=== PATIENT | female | born 1950 | race African-American/Black ===

== ENCOUNTER 2018-03-20 09:15 | Emergency (ER) | payer OTHER ==
[~2018-03-20] VITALS: Ht 175.3 cm; Wt 92.5 kg
[2018-03-20 09:52] VITALS: BP 135/75
[2018-03-20] MEDS ORDERED: KETOROLAC TROMETH 30 MG/ML 1ML VIAL IM ONE (10:30)
== END 2018-03-20 12:05 | disposition home or self-care (01) ==
LOC: ER 09:15
DX: S83.242A Other tear of medial meniscus, current injury, left knee, initial encounter (principal); M19.90 Unspecified osteoarthritis, unspecified site; E11.9 Type 2 diabetes mellitus without complications; I10 Essential (primary) hypertension; E07.9 Disorder of thyroid, unspecified; Z87.891 Personal history of nicotine dependence; Z88.0 Allergy status to penicillin; X58.XXXA Exposure to other specified factors, initial encounter; Y93.89 Activity, other specified; Y99.8 Other external cause status; Y92.89 Other specified places as the place of occurrence of the external cause
CPT/HCPCS: 73552; 73700; 96372; 99284; J1885

== ENCOUNTER 2019-05-13 17:29 | Emergency (ER) | payer OTHER ==
[~2019-05-13] VITALS: Ht 175.3 cm; Wt 91.6 kg
[2019-05-13] MEDS ORDERED: KETOROLAC TROMETH 60MG/2ML VIAL IM ONE (21:15)
[2019-05-13 22:54] VITALS: BP 133/77
== END 2019-05-13 23:53 | disposition home or self-care (01) ==
LOC: ER 17:29
DX: M25.512 Pain in left shoulder (principal); M19.90 Unspecified osteoarthritis, unspecified site; E11.9 Type 2 diabetes mellitus without complications; I10 Essential (primary) hypertension; E07.9 Disorder of thyroid, unspecified
CPT/HCPCS: 73030; 93005; 96372; 99283; J1885

== ENCOUNTER 2025-01-12 09:46 | Inpatient (IN) | payer OTHER ==
[~2025-01-12] VITALS: Ht 175.3 cm; Wt 81.0 kg
--- NOTE | 2025-01-12 10:53 | ED.PDOC ---
History of Present Illness HPI Comments 74F presents to the Er w/ prior MHx of Arthritis, PUD, HTN, DM, High Lipids, Thyroid, Lung Cancer: SHx of Cancer Sx, BTL, Left Eye, Left Elbow and the c/c of ABD pain. Pt reports on having diffuse ABD pain associated w/ decrease eating, weight loss, constipation, N/V, all for 3 weeks. Pt notes on the ABD pain being a 10/10. Denies chills, fever, /D, SOB, CP. Denies any other associated symptom's, modifiers, or recent injuries or sick contact at this time. Chief Complaint: Abdominal Pain Time Seen by MD: 10:45 Primary Care Provider: NNEKA Holder Notes: Nurses Notes, Medications, Allergies Allergies: Uncoded Allergies: PENICILLIN (Allergy, Unknown, 11/23/17) Information Source: Patient Mode of Arrival: Ambulatory Severity: Moderate Timing: Weeks Duration: Since onset Prehospital treatment: None Past Medical History PAST MEDICAL HISTORY: Arthritis, Cancer (lung), DM, High Lipids, HTN, PUD, Thyroid Surgical History: BTL Surgical History (Other): Cancer Sx, left eye Sx, Left Elbow Sx FORGING PRESS LEVER TENDER History: No Pertinent FORGING PRESS LEVER TENDER History Family History Family History: Reviewed,noncontributory to illness, Family hx of Cancer Social History Smoker: Non-Smoker, Quit Greater Than 1 Year Alcohol: Denies ETOH Use Drugs: Denies Drug Use Lives In: Home Constitutional: denies: chills, diaphoresis, fatigue, fever, malaise, sweats, weakness, others EENTM: denies: blurred vision, double vision, ear bleeding, ear discharge, ear drainage, ear pain, ear ringing, eye pain, eye redness, hearing loss, mouth pain, mouth swelling, nasal discharge, nose bleeding, nose congestion, nose pain, photophobia, tearing, throat pain, throat swelling, voice changes, others Respiratory: denies: cough, hemoptysis, orthopnea, SOB at rest, shortness of breath, SOB with excertion, stridor, wheezing, others Cardiovascular: denies: chest pain, dizzy spells, diaphoresis, Dyspnea on exertion, edema, irregular heart beat, left arm pain, lightheadedness, palpitations, PND, syncope, others Gastrointestinal: reports: abdominal pain, nausea, vomiting; denies: abdomen distended, blood streaked bowels, constipated, diarrhea, dysphagia, difficulty swallowing, hematemesis, melena, poor appetite, poor fluid intake, rectal bleeding, rectal pain, others Genitourinary: denies: abnormal vagina bleeding, burning, dyspareunia, dysuria, flank pain, frequency, hematuria, incontinence, pain, , vagina discharge, urgency, others Neurological: denies: dizziness, fainting, headache, left sided numbness, left sided weakness, numbness, paresthesia, pre-existing deficit, right sided numbness, right sided weakness, seizure, speech problems, tingling, tremors, weakness, others Musculoskeletal: denies: back pain, gout, joint pain, joint swelling, muscle pain, muscle stiffness, neck pain, others Integumetry: denies: bruises, change in color, change in hair/nails, dryness, laceration, lesions, lumps, rash, wounds, others Allergic/Immunocompromised: denies: Difficulty Healing, Frequent Infections, Hives, Itching, others Hematologic/Lymphatic: denies: anemia, blood clots, easy bleeding, easy bruising, swollen glands, others Endocrine: reports: unexplained weight loss; denies: excessive hunger, excessive sweating, excessive thirst, excessive urination, flushing, intolerance to cold, intolerance to heat, unexplained weight gain, others Psychiatric: denies: anxiety, bipolar disorder, depression, hopeless, panic disorder, schizophrenia, sleepless, suicidal, others Physical Exam General Appearance: Moderate Distress HEENT: Normal ENT Inspection, Pharynx Normal, TMs Normal Neck: Full Range of Motion, Non-Tender, Normal, Normal Inspection Respiratory: Chest Non-Tender, Lungs Clear, No Accessory Muscle Use, No Respiratory Distress, Normal Breath Sounds Cardiovascular: No Edema, No JVD, No Murmur, No Gallop, Normal Peripheral Puls es, Regular Rate/Rhythm Breast Exam: Deferred Gastrointestinal: Diffuse, No Organomegaly, No Pulsatile Mass, Normal Bowel Sounds, Soft, Tenderness Genitalia: Deferred Pelvic: Deferred Rectal: Deferred Extremities: No calf tenderness, Normal capillary refill, Normal inspection, Normal range of motion, Non-tender, No pedal edema Musculoskeletal : Apperance: Normal Neurologic: Alert, hot blast worker II-XII nml as Tested, Motor Weakness, Normal Affect, Normal Mood, No Sensory Deficits Cerebellar Function: Normal Reflexes: Normal Skin: Dry, Normal Color, Warm Lymphatic: No Adenopathy Was a procedure done? Was a procedure done?: No Differential Dx Considerations may include: Intractable abdominal pain, generalized weakness, appendicitis, cholelithiasis X-Ray, Labs, Meds, VS Vital Signs Date Time Temp Pulse Resp B/P (MAP) Pulse Ox O2 Delivery O2 Flow Rate FiO2 01/12/25 15:02 87 19 132/78 01/12/25 14:32 74 18 121/69 01/12/25 12:07 69 18 116/70 01/12/25 11:46 98.3 77 17 113/63 (80) 99 98.3 01/12/25 11:45 Room Air* 0 21 01/12/25 11:37 77 17 113/63 01/12/25 09:47 98.3 116 16 125/66 98 98.3 Lab Test 01/12/25 10:58 Range/Units White Blood Count 4.6 4.4-10.8 10^3/uL Red Blood Count 4.38 4.0-5.20 10^6/uL Hemoglobin 12.5 12.2-16.2 g/dL Hematocrit 37.4 36.0-46.0 % Mean Corpuscular Volume 85.4 80.0-100.0 fL Mean Corpuscular Hemoglobin 28.5 28.0-32.0 pg Mean Corpuscular Hemoglobin Concent 33.4 32.0-36.0 g/dL Red Cell Distribution Width 13.9 11.8-14.3 % Platelet Count 345 140-450 10^3/uL Mean Platelet Volume 7.7 6.9-10.8 fL Neutrophils (%) (Auto) 67.8 37.0-80.0 % Lymphocytes (%) (Auto) 23.2 10.0-50.0 % Monocytes (%) (Auto) 7.8 0.0-12.0 % Eosinophils (%) (Auto) 0.7 0.0-7.0 % Basophils (%) (Auto) 0.5 0.0-2.0 % Neutrophils # (Auto) 3.1 1.6-8.6 10 ^3/uL Lymphocytes # (Auto) 1.1 0.4-5.4 10 ^3/uL Monocytes # (Auto) 0.4 0-1.3 10 ^3/uL Eosinophils # (Auto) 0 0-0.8 10 ^3/uL Basophils # (Auto) 0 0-0.2 10 ^3/uL Nucleated Red Blood Cells 0.1 % Sodium Level 137 136-145 mmol/L Potassium Level 3.5 3.5-5.1 mmol/L Chloride Level 96 L 98-107 mmol/L Carbon Dioxide Level 31 20-31 mmol/L Anion Gap 10 5-15 Blood Urea Nitrogen 12 9-23 mg/dL Creatinine 1.01 0.550-1.02 mg/dL Glomerular Filtration Rate Calc 58 >90 mL/min BUN/Creatinine Ratio 11.9 10.0-20.0 Serum Glucose 88 74-106 mg/dL Calcium Level 10.6 H 8.7-10.4 mg/dL Total Bilirubin 0.4 0.2-1.0 mg/dL Aspartate Amino Transferase (AST) 22 13-40 U/L Alanine Aminotransferase (ALT) 22 7-40 U/L Alkaline Phosphatase 49 46-116 U/L Total Protein 7.9 5.7-8.2 g/dL Albumin 4.8 3.2-4.8 g/dL Lipase 49 12-53 U/L Current Medications Medications (Trade) Dose Ordered Sig/Lyric Route Start Time Stop Time Status Last Admin Ondansetron HCl (Zofran) 4 mg ONCE ONCE IV 01/12/25 11:00 01/12/25 11:01 [place] 01/12/25 11:36 Morphine Sulfate 4 mg ONCE ONCE IV 01/12/25 11:00 01/12/25 11:01 DC 01/12/25 11:37 Pantoprazole Sodium (Protonix) 40 mg ONCE ONCE IV 01/12/25 11:00 01/12/25 11:01 [place] 01/12/25 11:36 Morphine Sulfate 4 mg ONCE ONCE IV 01/12/25 14:15 01/12/25 14:16 DC 01/12/25 14:32 Ondansetron HCl (Zofran) 4 mg ONCE ONCE IV 01/12/25 14:15 01/12/25 14:16 DC 01/12/25 14:31 IV Hep-Lock was established The patient was given morphine 4 mg IV push for the pain The patient was given Protonix 40 mg IV push The patient was given Zofran 4 mg IV push for the nausea The patient continued with pain so was given another dose of morphine as well as Zofran The CAT scan of the abdomen and pelvis shows: IMPRESSION: Thickening of the distal stomach / pyloric wall with adjacent fat stranding could be due to inflammation / infection with an ulcer a consideration. The patient is being admitted at this time The patient's CBC is within normal limits The chemistry panel is within normal limits. Despite the medications, the patient is still having abdominal pain Images Reviewed?: Images reviewed and evaluated by me Time of 1ST Reevaluation: 11:15 Reevaluation 1ST: Unchanged Time of 2ND Reevaluation: 16:01 Reevaluation 2ND: Unchanged Patient Education/Counseling: Diagnosis, Treatment, Prognosis Family Education/Counseling: No Family Present SEPSIS Sepsis Screen Date sepsis recognized/suspect: Jan 12, 2025 Time Sepsis recognized/suspect: 947 Recent Procedure: No On Antibiotic Therapy: No Respiratory Rate >20: No Heart Rate >90: Yes Temp<36 C (96.8 F) or >38.3 C: No SBP <90 or MAP <65 mmHG: No New Acute Mental Status Change: No Is the patient on CPAP, BIPAP,: No Physician Orders Urinalysis (01/12/25 10:47) Ct Ab Pel Wo Con-No Oral Or Iv (01/12/25 10:47) Heplock Iv (01/12/25 10:47) Vital Signs Date Time Temp Pulse Resp B/P (MAP) Pulse Ox O2 Delivery O2 Flow Rate FiO2 01/12/25 15:02 87 19 132/78 01/12/25 14:32 74 18 121/69 01/12/25 12:07 69 18 116/70 01/12/25 11:46 98.3 77 17 113/63 (80) 99 98.3 01/12/25 11:45 Room Air* 0 21 01/12/25 11:37 77 17 113/63 01/12/25 09:47 98.3 116 16 125/66 98 98.3 Laboratory Tests Test 01/12/25 10:58 White Blood Count 4.6 10^3/uL (4.4-10.8) Medications Medications Dose Ordered Sig/Lyric Route Start Time Stop Time Status Last Admin Dose Admin Morphine Sulfate 4 mg ONCE ONCE IV 01/12/25 11:00 01/12/25 11:01 DC 01/12/25 11:37 Morphine Sulfate 4 mg ONCE ONCE IV 01/12/25 14:15 01/12/25 14:16 DC 01/12/25 14:32 Ondansetron HCl 4 mg ONCE ONCE IV 01/12/25 11:00 01/12/25 11:01 DC 01/12/25 11:36 Ondansetron HCl 4 mg ONCE ONCE IV 01/12/25 14:15 01/12/25 14:16 DC 01/12/25 14:31 Pantoprazole Sodium 40 mg ONCE ONCE IV 01/12/25 11:00 01/12/25 11:01 DC 01/12/25 11:36 Departure 1 Departure Time of Disposition: 16:01 Impression: Primary Impression: Intractable abdominal pain Disposition: ADMITTED INPATIENT Admit to: Med Surg Condition: Fair Critical Care Note Critical Care Time?: No Stability Stability form required: Yes Unstable for transfer: ED Physician Assesment (Clinical assesment) Heart Score Heart Score: Heart Score Response (Comments) Value History N/A 0 EKG N/A 0 Age N/A 0 Risk Factors N/A 0 Troponin N/A 0 Total 0 I personally scribed for SYLVIA DAVISON MD ([email or web address]) on 01/12/25 at 10:53. Electronically submitted by Camron Murguia ([email or web address]). SYLVIA DAVISON MD Jan 12, 2025 10:53
--- NOTE | 2025-01-12 11:31 | DVH ---
CT CT AB PEL WO CON-NO ORAL OR IV INDICATION: pain EXAM DATE: 01/12/2025 10:53 AM COMPARISON: None RADIATION DOSE: CTDIvol: 12.12 mGy, DLP: 610.33 mGy*cm PROCEDURE: Helical CT images were obtained of the abdomen and pelvis without IV contrast Sagittal and coronal reconstructions are provided. ORAL CONTRAST: None. ADDITIONAL IMAGES / REFORMATS: None All C T scans at this medical facility are performed using dose modulation techniques as appropriate to a p erformed exam including the following: Automated exposure control was utilized; adjustment of the MA and/or KV according to patient size; and use of iterative reconstruction technique. FINDINGS: LUNG BASE: Mild right basilar atelectasis with pleural calcification. LIVER: Coarse calcifications are seen in the liver GALLBLADDER AND BILIARY TREE: No calcified gallstones. Normal caliber wall. No intra- or extrahepatic biliary ductal dilation. PANCREAS: Normal. SPLEEN: Normal. BOWEL: Severe colonic diverticulosis. Normal appendix. Thickening of the distal stomach / pyloric wal l with adjacent fat stranding. Stomach is distended with food. ADRENALS: Normal. KIDNEYS AND URETER: Normal. BLADDER: Normal. REPRODUCTIVE ORGANS: Normal. LYMPH NODES:No lymphadenopathy. PERITONEUM: No ascites or free air. No other fluid collection. VESSELS: Scattered atherosclerotic calcifications are noted. RETROPERITONEUM: Normal. ABDOMINAL WALL: Normal. BONES: Scattered osseous degenerative changes are noted. IMPRESSION: Thickening of the distal stomach / pyloric wall with adjacent fat stranding could be due to inflammat ion / infection with an ulcer a consideration.
[2025-01-12] MEDS: PANTOPRAZOLE 40 MG/10 ML VIAL INJ IV ONE (11:36)
[2025-01-12] MEDS: ONDANSETRON HCL 4 MG/2 ML VIAL IV ONE ×2 (11:36→14:31)
[2025-01-12 11:37] LABS: Hematocrit 37.4 % (36.0-46.0); Hemoglobin 12.5 g/dL (12.2-16.2); Mean Corpuscular Hemoglobin 28.5 pg (28.0-32.0); Mean Corpuscular Volume 85.4 fL (80.0-100.0); Nucleated Red Blood Cells % 0.1 %
[2025-01-12] MEDS: MORPHINE SULFATE 4 MG/ML SYR/VIAL IV ONE ×2 (11:37→14:32)
[2025-01-12 11:52] LABS: Alanine Aminotransferase 22 U/L (7-40); Alkaline Phosphatase 49 U/L (46-116); Anion Gap 10 (5-15); BUN/Creatinine Ratio 11.9 (10.0-20.0); Blood Urea Nitrogen 12 mg/dL (9-23); Glucose 88 mg/dL (74-106); Lipase 49 U/L (12-53); Potassium 3.5 mmol/L (3.5-5.1); Sodium 137 mmol/L (136-145); Total Protein 7.9 g/dL (5.7-8.2)
[2025-01-12 11:53] LABS: Bilirubin, Total 0.4 mg/dL (0.2-1.0)
[2025-01-12 11:57] LABS: Albumin 4.8 g/dL (3.2-4.8); Calcium 10.6 mg/dL (8.7-10.4); Carbon Dioxide 31 mmol/L (20-31); Chloride 96 mmol/L (98-107)
[2025-01-12] MEDS ORDERED: MORPHINE SULFATE INJ 2 MG/ml SYRG IV PRN (16:30)
[2025-01-12] MEDS ORDERED: ACETAMINOPHEN 325 MG TAB PO PRN (16:30)
--- NOTE | 2025-01-12 16:43 | DVHHP2 ---
History of Present Illness Reason for Visit: ABDOMINAL PAIN History of Present Illness 74-year-old female with a past medical history of gastritis, hypertension, type 2 diabetes mellitus, hyperlipidemia, thyroid disease, right lung cancer, peripheral neuropathy, and arthritis presents to the ED accompanied by her daughter with complaint of progressive abdominal pain over the past month. She describes the pain as epigastric, associated with bloating and cessation of abdominal congestion that causes her to gag or vomit to relieve pressure. She notes feeling constipated and has attempted magnesium citrate, which provided only mild relief. Denies fever, melena, or hematemesis. She also denies recent weight loss or change in appetite. Patient reports chronic use of [place] for atretic pain. CT abdomen obtained in the ED reveals thickening of the distal stomach and pyloric wall with adjacent fat stranding, concerning for inflammatory/infection, with ulcer as a possible consideration Past Medical History As stated in HPI Past Surgical History BTL Family History Reviewed, non-contributory to the management of this case. Past Social History The patient lives at home, denies smoking, alcohol or illicit drugs abuse. Review of Systems Constitutional: Yes: Malaise; No: Fever, Chills, Sweats, Other Eyes: No: Pain, Vision change, Conjunctivae inflammation, Eyelid inflammation, Other, Redness ENT: No: Ear pain, Ear discharge, Nose pain, Nose discharge, Nose congestion, Mouth pain, Mouth swelling, Throat pain, Throat swelling, Other Respiratory: No: Cough, Dry, Shortness of breath, SOB with excertion, Wheezing, Hemoptysis, Pleuritic Pain, Sputum, Wheezing, Other Cardiovascular: No: Chest Pain, Palpitations, Orthopnea, Paroxysmal Noc. Dys pnea, Edema, Lt Headedness, Other Gastrointestinal: Nausea, Abdominal Pain, Constipation; No: Vomiting, Diarrhea, Melena, Hematochezia, Other Genitourinary: No Dysuria, No Frequency, No Incontinence, No Hematuria, No Retention, No Other Musculoskeletal: No: other, neck pain, shoulder pain, arm pain, back pain, hand pain, leg pain, foot pain Skin: No: Rash, Lesions, Jaundice, Bruising, Other Neurological: No: Weakness, Numbness, Incoordination, Change in speech, Confusion, Seizures, Other Allergies: Uncoded Allergies: PENICILLIN (Allergy, Unknown, 11/23/17) Exam Vital Signs Vital Signs Date Time Temp Pulse Resp B/P (MAP) Pulse Ox O2 Delivery O2 Flow Rate FiO2 01/12/25 15:02 87 19 132/78 01/12/25 11:46 98.3 99 98.3 01/12/25 11:45 Room Air* 0 21 Labs/Xrays Labs Test 01/12/25 10:58 Range/Units White Blood Count 4.6 4.4-10.8 10^3/uL Red Blood Count 4.38 4.0-5.20 10^6/uL Hemoglobin 12.5 12.2-16.2 g/dL Hematocrit 37.4 36.0-46.0 % Mean Corpuscular Volume 85.4 80.0-100.0 fL Mean Corpuscular Hemoglobin 28.5 28.0-32.0 pg Mean Corpuscular Hemoglobin Concent 33.4 32.0-36.0 g/dL Red Cell Distribution Width 13.9 11.8-14.3 % Platelet Count 345 140-450 10^3/uL Mean Platelet Volume 7.7 6.9-10.8 fL Neutrophils (%) (Auto) 67.8 37.0-80.0 % Lymphocytes (%) (Auto) 23.2 10.0-50.0 % Monocytes (%) (Auto) 7.8 0.0-12.0 % Eosinophils (%) (Auto) 0.7 0.0-7.0 % Basophils (%) (Auto) 0.5 0.0-2.0 % Neutrophils # (Auto) 3.1 1.6-8.6 10 ^3/uL Lymphocytes # (Auto) 1.1 0.4-5.4 10 ^3/uL Monocytes # (Auto) 0.4 0-1.3 10 ^3/uL Eosinophils # (Auto) 0 0-0.8 10 ^3/uL Basophils # (Auto) 0 0-0.2 10 ^3/uL Nucleated Red Blood Cells 0.1 % Sodium Level 137 136-145 mmol/L Potassium Level 3.5 3.5-5.1 mmol/L Chloride Level 96 L 98-107 mmol/L Carbon Dioxide Level 31 20-31 mmol/L Anion Gap 10 5-15 Blood Urea Nitrogen 12 9-23 mg/dL Creatinine 1.01 0.550-1.02 mg/dL Glomerular Filtration Rate Calc 58 >90 mL/min BUN/Creatinine Ratio 11.9 10.0-20.0 Serum Glucose 88 74-106 mg/dL Calcium Level 10.6 H 8.7-10.4 mg/dL Total Bilirubin 0.4 0.2-1.0 mg/dL Aspartate Amino Transferase (AST) 22 13-40 U/L Alanine Aminotransferase (ALT) 22 7-40 U/L Alkaline Phosphatase 49 46-116 U/L Total Protein 7.9 5.7-8.2 g/dL Albumin 4.8 3.2-4.8 g/dL Lipase 49 12-53 U/L PROCEDURE(s): ABPL - CT AB PEL WO CON-NO ORAL OR IV REASON: pain ORDER NUMBER(s): [id number], ACCESSION NUMBER(s): [id number] CT CT AB PEL WO CON-NO ORAL OR IV INDICATION: pain EXAM DATE: 01/12/2025 10:53 AM COMPARISON: None RADIATION DOSE: CTDIvol: 12.12 mGy, DLP: 610.33 mGy*cm PROCEDURE: Helical CT images were obtained of the abdomen and pelvis without IV contrast Sagittal and coronal reconstructions are provided. ORAL CONTRAST: None. ADDITIONAL IMAGES / REFORMATS: None All CT scans at this medical facility are performed using dose modulation techniques as appropriate to a performed exam including the following: Automated exposure control was utilized; adjustment of the MA and/or KV according to patient size; and use of iterative reconstruction technique. FINDINGS: LUNG BASE: Mild right basilar atelectasis with pleural calcification. LIVER: Coarse calcifications are seen in the liver GALLBLADDER AND BILIARY TREE: No calcified gallstones. Normal caliber wall. No intra- or extrahepatic biliary ductal dilation. PANCREAS: Normal. SPLEEN: Normal. BOWEL: Severe colonic diverticulosis. Normal appendix. Thickening of the distal stomach / pyloric wall with adjacent fat stranding. Stomach is distended with food. ADRENALS: Normal. KIDNEYS AND URETER: Normal. BLADDER: Normal. REPRODUCTIVE ORGANS: Normal. LYMPH NODES:No lymphadenopathy. PERITONEUM: No ascites or free air. No other fluid collection. VESSELS: Scattered atherosclerotic calcifications are noted. RETROPERITONEUM: Normal. ABDOMINAL WALL: Normal. BONES: Scattered osseous degenerative changes are noted. IMPRESSION: Thickening of the distal stomach / pyloric wall with adjacent fat stranding could be due to inflammation / infection with an ulcer a consideration. SEPSIS Sepsis Screen Date sepsis recognized/suspect: Jan 12, 2025 Time Sepsis recognized/suspect: 09:48 Recent Procedure: No On Antibiotic Therapy: No Respiratory Rate >20: No Heart Rate >90: Yes Temp<36 C (96.8 F) or >38.3 C: No SBP <90 or MAP <65 mmHG: No New Acute Mental Status Change: No Is the patient on CPAP, BIPAP,: No Physician Orders Urinalysis (01/12/25 10:47) Ct Ab Pel Wo Con-No Oral Or Iv (01/12/25 10:47) Heplock Iv (01/12/25 10:47) Admit (01/12/25 16:28) Code Status (01/12/25 16:28) Sodium Chloride 0.9% (01/12/25 16:30) Hydrocodone-Acet 5/325mg Tab ([place] (01/12/25 16:30) Ondansetron Hcl (Zofran) (01/12/25 16:30) Enoxaparin Sodium (Lovenox) (01/13/25 10:00) Fall Risk Precautions In Place QSHIFT (01/12/25 16:28) Complete Blood Count (01/13/25 04:00) Comprehensive Metabolic Panel (01/13/25 04:00) Cardiac Diet-2gna,Lofat,Lochol (01/12/25 Dinner) Condition: Fair (01/12/25 16:28) Acetaminophen Tablet (Tylenol Tablet) (01/12/25 16:30) Morphine Sulfate Injection (01/12/25 16:30) Docusate Sodium Capsule (Colace Capsule) (01/12/25 22:00) Pantoprazole (Protonix) (01/13/25 10:00) * [facility] Commercial Insurance Underwriter (01/12/25 16:28) Vital Signs Date Time Temp Pulse Resp B/P (MAP) Pulse Ox O2 Delivery O2 Flow Rate FiO2 01/12/25 15:02 87 19 132/78 01/12/25 14:32 74 18 121/69 01/12/25 12:07 69 18 116/70 01/12/25 11:46 98.3 77 17 113/63 (80) 99 98.3 01/12/25 11:45 Room Air* 0 21 01/12/25 11:37 77 17 113/63 01/12/25 09:47 98.3 116 16 125/66 98 98.3 Laboratory Tests Test 01/12/25 10:58 White Blood Count 4.6 10^3/uL (4.4-10.8) Medications Medications Dose Ordered Sig/Lyric Route Start Time Stop Time Status Last Admin Dose Admin Morphine Sulfate 4 mg ONCE ONCE IV 01/12/25 11:00 01/12/25 11:01 DC 01/12/25 11:37 4 MG Morphine Sulfate 4 mg ONCE ONCE IV 01/12/25 14:15 01/12/25 14:16 DC 01/12/25 14:32 4 MG Ondansetron HCl 4 mg ONCE ONCE IV 01/12/25 11:00 01/12/25 11:01 DC 01/12/25 11:36 4 MG Ondansetron HCl 4 mg ONCE ONCE IV 01/12/25 14:15 01/12/25 14:16 DC 01/12/25 14:31 4 MG Pantoprazole Sodium 40 mg ONCE ONCE IV 01/12/25 11:00 01/12/25 11:01 DC 01/12/25 11:36 40 MG Assessment/Plan Assessment/Plan # acute abdominal pain # history of gastritis * Admit to medical-surgical unit * NPO * GI consult * PPI, colace, ivf * UA pending # hypertension * Continue with verapamil * Monitor BP # DM 2 * Insulin sliding scale * Check A1c # hyperlipidemia * Continue with statins * Check lipid panel # hypothyroidism * Continue with levothyroxine * Check TSH # hx of lung cancer * Med neb as needed * Monitor # arthritis/peripheral neuropathy * Gabapentin DVT prophylaxis Medical plan discussed with patient and daughter Plan discussed with: Patient My Orders Orders - DARRYL MEREDITH PRODUCTION CONTROL COORDINATOR Procedure Category Date Status Time Admit ADMIT 01/12/25 Transmitted 16:28 Code Status CODE 01/12/25 Transmitted 16:28 Sodium Chloride 0.9% PHA 01/12/25 Logged 16:30 Hydrocodone-Acet PHA 01/12/25 Logged 5/325mg Tab ([place] 16:30 Ondansetron Hcl PHA 01/12/25 Logged (Zofran) 16:30 Enoxaparin Sodium PHA 01/13/25 Logged (Lovenox) 10:00 Fall Risk Precautions MASHA 01/12/[address] 16:28 Complete Blood Count LAB 01/13/25 Verified 04:00 Comprehensive LAB 01/13/25 Verified Metabolic Panel 04:00 Cardiac DIET 01/12/25 Transmitted Diet-2gna,Lofat,Lochol Dinner Condition: Fair MASHA 01/12/25 In Process 16:28 Acetaminophen Tablet PHA 01/12/25 Logged (Tylenol Tablet) 16:30 Morphine Sulfate PHA 01/12/25 Logged Injection 16:30 Docusate Sodium PHA 01/12/25 Logged Capsule (Colace 22:00 Pantoprazole PHA 01/13/25 Logged (Protonix) 10:00 * [facility] Commercial Insurance Underwriter CONS 01/12/25 Transmitted 16:28 Date of Service: Jan 12, 2025 Billing Provider: DARRYL MEREDITH Common Visit Codes: [id number] INP/OBS CARE (HIGH) Consultation Codes: [id number] CONSULT <45MIN DARRYL MEREDITH Jan 12, 2025 16:43
[2025-01-12] MEDS ORDERED: DEXTROSE (50%) 50ML SYRG IV PRN (16:45)
[2025-01-12 17:17] LABS: Triglycerides 69 mg/dL (< 150)
[2025-01-12 17:19] LABS: HDL Cholesterol 56 mg/dL (40-59)
[2025-01-12 17:20] LABS: Cholesterol 127 mg/dL (< 200)
[2025-01-12] MEDS ORDERED: ATOR20TA50 PO (17:21)
[2025-01-12] MEDS ORDERED: GAB100C PO (17:21)
[2025-01-12] MEDS ORDERED: VERA240T93 PO (17:21)
[2025-01-12] MEDS ORDERED: LEVO50TA7 PO (17:21)
[2025-01-12] MEDS ORDERED: ALBUTEROL SULF 2.5 MG/0.5ML(0.5%) NEB SOLN NEB PRN (17:30)
[2025-01-12] MEDS: InsuLIN REG 1unit/0.01ml Soln (100units/ml) SC SCH (17:34)
[2025-01-12] MEDS: ACCU-CHEK COMFORT CURVE STRIP VI SCH (17:34)
[2025-01-12] MEDS: SODIUM CHLORIDE 0.9% 1,000 ML IV SCH (19:29)
[2025-01-12 19:55] VITALS: BP 132/78; PULSE 87; RESP 19; TEMP 98.3; O2SAT 99
[2025-01-12] MEDS: GABAPENTIN 100 MG CAP PO SCH (22:00)
[2025-01-12] MEDS: DOCUSATE SOD 100 MG CAP PO SCH (22:00)
[2025-01-12] MEDS: ATORVASTATIN 20 MG TAB PO SCH (22:41)
[2025-01-12 23:01] VITALS: BP 126/89; PULSE 80; RESP 18; TEMP 97.8; O2SAT 96
[2025-01-13] VITALS (11 sets, daily range): BP systolic 100–136; BP diastolic 61–81; PULSE 57–80; RESP 17–20; TEMP 97.7–98.1; O2SAT 92–100
[2025-01-13 02:43] LABS: Urine Protein, UAD Negative (Negative)
[2025-01-13] MEDS ORDERED: CALC1TAB92 PO (02:58)
[2025-01-13] MEDS ORDERED: HYDR-4798 PO (02:58)
[2025-01-13] MEDS ORDERED: METF-370 PO (02:58)
[2025-01-13] MEDS ORDERED: TRIA37.586 PO (02:58)
[2025-01-13] MEDS: LEVOTHYROXINE SODIUM 50 MCG TAB PO SCH (06:16)
[2025-01-13 08:39] LABS: Hematocrit 35.6 % (36.0-46.0); Hemoglobin 11.8 g/dL (12.2-16.2); Mean Corpuscular Hemoglobin 28.6 pg (28.0-32.0); Mean Corpuscular Volume 86.7 fL (80.0-100.0); Nucleated Red Blood Cells % 0.1 %
[2025-01-13 09:17] LABS: Alanine Aminotransferase 16 U/L (7-40); Anion Gap 9 (5-15); BUN/Creatinine Ratio 12.8 (10.0-20.0); Blood Urea Nitrogen 12 mg/dL (9-23); Calcium 9.7 mg/dL (8.7-10.4); Carbon Dioxide 29 mmol/L (20-31); Chloride 101 mmol/L (98-107); Glucose 86 mg/dL (74-106); Potassium 4.0 mmol/L (3.5-5.1); Sodium 139 mmol/L (136-145); Total Protein 6.9 g/dL (5.7-8.2)
[2025-01-13 09:18] LABS: Albumin 4.1 g/dL (3.2-4.8); Bilirubin, Total 0.5 mg/dL (0.2-1.0)
[2025-01-13 09:21] LABS: Alkaline Phosphatase 43 U/L (46-116)
[2025-01-13] MEDS: PANTOPRAZOLE 40 MG/10 ML VIAL INJ IV SCH ×2 (10:09→21:08)
[2025-01-13] MEDS: VERAPAMIL HCL 120 mg ER tab PO SCH (10:15)
[2025-01-13] MEDS: ENOXAPARIN SOD 40 MG/0.4 ML SYRINGE SC SCH (10:15)
[2025-01-13 11:26] LABS: Hepatitis B Surface Antigen Negative (Negative)
[2025-01-13] MEDS ORDERED: POLYETHYLENE GLYCOL 17 GM PWDR PO PRN (11:45)
--- NOTE | 2025-01-13 11:56 | DVHCONRES ---
Date Seen: Jan 13, 2025 Resident Creating Document: NALDO CARLOS RESIDENT Reason for Consultation Abdominal pain, history of gastritis History of Present Illness Patient is a 74-year-old female with past medical history of hypertension, type 2 diabetes, dyslipidemia, hypothyroidism, right sided lung cancer, gastritis, questionable rheumatoid arthritis, who comes in due to abdominal pain. According to the patient, she has been experiencing abdominal pain for the past 1 month, however, over the last 2 days he got more severe, rates it as 9-10/10, constant, worse with eating without any relieving factors and associated with constipation that was not relieved by MiraLax or magnesium. The time of my assessment patient denies any active ongoing abdominal pain. CT abdomen pelvis showed thickening of the distal stomach/pyloric wall with adjacent fat stranding could be due to inflammation/infection with an ulcer in consideration. Past Medical History Gastritis, hypertension, type 2 diabetes, peripheral neuropathy, dyslipidemia, hypothyroidism, right sided lung cancer, questionable rheumatoid arthritis Past Surgical History Right base lobectomy, eye surgery, bilateral tubal ligation Family History: Cerebrovascular accident (CVA) G8 MOTHER Diabetes mellitus G8 MOTHER FH: cancer G8 MOTHER G8 FATHER Family History Pancreatic cancer in mother, ovarian cancer in sister Allergies: Uncoded Allergies: PENICILLIN (Allergy, Unknown, 11/23/17) Home Meds Reported Medications Calcium Carbonate (Calcium) 600 Mg Tab, 600 MG PO DAILY, TAB 01/13/25 Hydrochlorothiazide W/Triamter (Triamterene/Hydrochloroth) 1 Cap Cap, 1 CAP PO DAILY, CAP 01/13/25 Hydrocodone-Acetaminophen (Hydrocodone Bitartrate/AC 10-325 mg) 1 Tab Tab, 1 TAB PO TID, TAB 01/13/25 Metformin Hydrochloride (Metformin Hcl) 500 Mg Tab, 1 TAB PO DAILY, #60 TAB 3 Refills 01/13/25 Atorvastatin Calcium (ATORVASTATIN CALCIUM) 20 Mg Tab, 1 TAB PO DAILY 01/12/25 Gabapentin (Gabapentin) 100 Mg Cap, 1 CAP PO BID 01/12/25 Levothyroxine Sodium (Levothyroxine Sodium) 50 Mcg Tab, 1 TAB PO DAILY 01/12/25 Verapamil HCl (Verapamil Hydrochloride E) 240 Mg Tab, 1 TAB PO DAILY 01/12/25 Current Medications Current Medications Medications (Trade) Dose Ordered Sig/Lyric Route PRN Reason Start Time Stop Time Status Last Admin Sodium Chloride 1,000 ml @ 60 mls/hr [id number] IV 01/12/25 16:30 01/12/25 23:33 Acetaminophen/ Hydrocodone Bitart (Davin 5/325MG Tab) 1 tab Q4HP PRN PO MODERATE PAIN (4-6 PAIN SCALE) 01/12/25 16:30 Ondansetron HCl (Zofran) 4 mg Q4HP PRN IV NAUSEA / VOMITING 01/12/25 16:30 Enoxaparin Sodium (Lovenox) 40 mg DAILY SC 01/13/25 10:00 01/13/25 10:15 Acetaminophen (Tylenol Tablet) 650 mg Q6HP PRN PO PAIN SCALE 1-3 OR TEMP>100.4 01/12/25 16:30 Morphine Sulfate 2 mg Q4HPRN PRN IV SEVERE PAIN (7-10 PAIN SCALE) 01/12/25 16:30 Docusate Sodium (Colace Capsule) 100 mg BID PO 01/12/25 22:00 01/13/25 10:15 Pantoprazole Sodium (Protonix) 40 mg DAILY IV 01/13/25 10:00 01/13/25 10:09 Diagnostic Test (Pha) (Accu-Chek Comfort Curve T) 1 strip ACHS 01/12/25 17:00 01/13/25 06:28 Insulin Human Regular (InsuLIN R) ACHS SC 01/12/25 17:00 Dextrose 50 ml UD PRN IV Blood Sugar LESS THAN 60 01/12/25 16:45 Atorvastatin Calcium (Lipitor) 20 mg HS PO 01/12/25 22:00 01/12/25 22:41 Gabapentin (Neurontin Capsule) 100 mg BID PO 01/12/25 22:00 01/13/25 10:10 Levothyroxine Sodium (Synthroid Tablet) 50 mcg QAM PO 01/13/25 07:00 01/13/25 06:16 Verapamil HCl (Calan Sr) 240 mg DAILY PO 01/13/25 10:00 01/13/25 10:15 Albuterol (Ventolin Medneb) 2.5 mg Q4HPRN PRN NEB SHORTNESS OF BREATH 01/12/25 17:30 Patient Own Medication 1 cap DAILY PO 01/14/25 10:00 UNV Polyethylene Glycol (Miralax 17GM Powder) 17 gm DAILYPRN PRN PO FOR CONSTIPATION 01/13/25 11:45 UNV Review of Systems Patient seen and examined at bedside. Patient is alert and oriented to time, place person and responding to all questions. Complaining of nausea, constipation. Denies active ongoing abdominal pain right now. Vital Signs Vital Signs Date Time Temp Pulse Resp B/P (MAP) Pulse Ox O2 Delivery O2 Flow Rate FiO2 01/13/25 10:15 71 104/61 01/13/25 10:00 92 Room Air 0.0 01/13/25 10:00 21 01/13/25 08:58 98.1 20 98.1 Physical Exam General Appearance: Cooperative. Well developed. Well nourished. NAD Head Exam: Normal inspection Neck Exam: Normal inspection. Non-tender. Normal alignment Pulmonary/Respiratory: Chest non-tender. Clear bilateral breath sounds, no crackles, no wheezing. Cardiovascular/Chest: Regular rate and rhythm. No murmurs. No JVD. Abdominal Exam: Normal bowel sounds. Soft. normal abdomen, no visible veins, Nontender. No hepatospenomegaly. No masses Ankle Exam: Negative ankle edema Neuro/Mental Status: A&O x4. Coherent. Skin Exam: Normal inspection. Normal color. Warm. Dry Labs/Diagnostic Data Labs Test 01/13/25 11:37 01/13/25 07:50 01/13/25 01:30 01/12/25 10:58 Range/Units POC Glucose 80 70-106 mg/dl White Blood Count 5.2 4.4-10.8 10^3/uL Red Blood Count 4.11 4.0-5.20 10^6/uL Hemoglobin 11.8 L 12.2-16.2 g/dL Hematocrit 35.6 L 36.0-46.0 % Mean Corpuscular Volume 86.7 80.0-100.0 fL Mean Corpuscular Hemoglobin 28.6 28.0-32.0 pg Mean Corpuscular Hemoglobin Concent 33.0 32.0-36.0 g/dL Red Cell Distribution Width 13.8 11.8-14.3 % Platelet Count 295 140-450 10^3/uL Mean Platelet Volume 8.1 6.9-10.8 fL Neutrophils (%) (Auto) 69.8 37.0-80.0 % Lymphocytes (%) (Auto) 18.1 10.0-50.0 % Monocytes (%) (Auto) 7.8 0.0-12.0 % Eosinophils (%) (Auto) 3.7 0.0-7.0 % Basophils (%) (Auto) 0.6 0.0-2.0 % Neutrophils # (Auto) 3.7 1.6-8.6 10 ^3/uL Lymphocytes # (Auto) 0.9 0.4-5.4 10 ^3/uL Monocytes # (Auto) 0.4 0-1.3 10 ^3/uL Eosinophils # (Auto) 0.2 0-0.8 10 ^3/uL Basophils # (Auto) 0 0-0.2 10 ^3/uL Nucleated Red Blood Cells 0.1 % Sodium Level 139 136-145 mmol/L Potassium Level 4.0 3.5-5.1 mmol/L Chloride Level 101 98-107 mmol/L Carbon Dioxide Level 29 20-31 mmol/L Anion Gap 9 5-15 Blood Urea Nitrogen 12 9-23 mg/dL Creatinine 0.94 0.550-1.02 mg/dL Glomerular Filtration Rate Calc 63 >90 mL/min BUN/Creatinine Ratio 12.8 10.0-20.0 Serum Glucose 86 74-106 mg/dL Calcium Level 9.7 8.7-10.4 mg/dL Total Bilirubin 0.5 0.2-1.0 mg/dL Aspartate Amino Transferase (AST) 19 13-40 U/L Alanine Aminotransferase (ALT) 16 7-40 U/L Alkaline Phosphatase 43 L 46-116 U/L Total Protein 6.9 5.7-8.2 g/dL Albumin 4.1 3.2-4.8 g/dL Hepatitis B Surface Antigen Negative Negative Urine Color Light-yellow Yellow Urine Clarity Clear Clear Urine pH 5.5 5.0-9.0 Urine Specific [place] 1.014 1.001-1.035 Urine Protein Negative Negative Urine Ketones Negative Negative Urine Blood Negative Negative /uL Urine Nitrite Negative Negative Urine Bilirubin Negative Negative Urine Urobilinogen Normal Negative mg/dL Urine Leukocyte Esterase 2+ Negative /uL Urine RBC None seen 0 - 4 /hpf Urine Microscopic WBC 7 H 0-5 /HPF Urine Squamous Epithelial Cells Few <5 /hpf Urine Bacteria None seen None Seen /hpf Urine Hyaline Casts Few 0 - 2 /lpf Urine Mucus Few None Seen Urine Glucose Normal Normal mg/dL Hemoglobin A1c 5.6 <5.7 % A1C Triglycerides Level 69 < 150 mg/dL Cholesterol Level 127 < 200 mg/dL LDL Cholesterol 59 < 100 mg/dL HDL Cholesterol 56 40-59 mg/dL Lipase 49 12-53 U/L Thyroid Stimulating Hormone (TSH) 2.42 0.55-4.78 uIU/mL Assessment Acute intractable abdominal pain History of gastritis History of lung cancer Type 2 diabetes Hypothyroidism Constipation Acute complicated UTI Plan: IV NS at 60 cc/hour IV ceftriaxone Docusate MiraLax IV Protonix b.i.d. Scheduled for EGD tomorrow NPO at midnight Thank you so much for the opportunity to consult on your patient. GI team will follow the patient. In case of any questions or concerns please feel free to reach out. Plan discussed with Dr. Funes Plan discussed with: Patient, Other (RN) NALDO CARLOS RESIDENT Jan 13, 2025 11:56
[2025-01-13 12:31] LABS: Hepatitis C Antibody Negative (Negative)
--- NOTE | 2025-01-13 14:45 | DVHPNRES ---
Progress Note Date Seen: Jan 13, 2025 Resident Creating Document: SHERRY RIZVI RESIDENT Medical Necessity Reason Pt with a Central, PICC or Fol: No Subjective Review of Systems Patient seen and examined at bedside. Patient currently presents no abdominal pain. We will advance diet to clear liquid diet and evaluate for tolerance. GI consulted. Objective vital signs Vital Sign Date Time Temp Pulse Resp B/P (MAP) Pulse Ox O2 Delivery O2 Flow Rate FiO2 01/13/25 10:15 71 104/61 01/13/25 10:00 92 Room Air 0.0 01/13/25 10:00 21 01/13/25 08:58 98.1 20 98.1 Total Intake and Output 01/12/25 01/12/25 01/13/25 15:00 23:00 07:00 Intake Total 400 ml Balance 400 ml medications Current Medications Medications Dose Ordered Sig/Lyric Route Start Time Stop Time Status Last Admin Dose Admin Sodium Chloride 1,000 ml @ 60 mls/hr [id number] IV 01/12/25 16:30 01/12/25 23:33 60 MLS/HR Acetaminophen/ Hydrocodone Bitart 1 tab Q4HP PRN PO 01/12/25 16:30 Ondansetron HCl 4 mg Q4HP PRN IV 01/12/25 16:30 Enoxaparin Sodium 40 mg DAILY SC 01/13/25 10:00 01/13/25 10:15 40 MG Acetaminophen 650 mg Q6HP PRN PO 01/12/25 16:30 Morphine Sulfate 2 mg Q4HPRN PRN IV 01/12/25 16:30 Docusate Sodium 100 mg BID PO 01/12/25 22:00 01/13/25 10:15 100 MG Pantoprazole Sodium 40 mg DAILY IV 01/13/25 10:00 01/13/25 10:09 40 MG Diagnostic Test (Pha) 1 strip ACHS 01/12/25 17:00 01/13/25 11:30 1 STRIP Insulin Human Regular ACHS SC 01/12/25 17:00 Dextrose 50 ml UD PRN IV 01/12/25 16:45 Atorvastatin Calcium 20 mg HS PO 01/12/25 22:00 01/12/25 22:41 20 MG Gabapentin 100 mg BID PO 01/12/25 22:00 01/13/25 10:10 100 MG Levothyroxine Sodium 50 mcg QAM PO 01/13/25 07:00 01/13/25 06:16 50 MCG Verapamil HCl 240 mg DAILY PO 01/13/25 10:00 01/13/25 10:15 240 MG Albuterol 2.5 mg Q4HPRN PRN NEB 01/12/25 17:30 Polyethylene Glycol 17 gm DAILYPRN PRN PO 01/14/25 10:00 Triamterene/HCTZ 1 cap DAILY PO 01/14/25 10:00 Examination Patient lying in bed, in no acute distress General: Lucid, afebrile, mucosae are moist Cardiovascular: Normal S1 and S2. No murmurs, gallops or rubs Respiratory: Normal ventilation mechanics. Clear lung sounds on auscultation Abdomen: Soft, nontender, no organomegaly, normal bowel sounds MSK/skin: Mobilizes 4 limbs. Skin is dry and warm Neurological: Oriented in 3 spheres. No motor no sensitive deficits. Pupils are isocoric and reactive laboratory and microbiology Laboratory Tests 01/13/25 07:50 Test 01/13/25 07:50 Range/Units Serum Glucose 86 74-106 mg/dL Labs and/or images reviewed: Labs reviewed by me, Image(s) reviewed by me Problem List/Assessment/Plan Problem List/Assessment/Plan # Intractable abdominal pain # Probable symptomatic gastritis # Rule out malignancy/peptic ulcer # Constipation Completed abdomen and pelvis CT which showed thickening of distal stomach/pyloric wall with adjacent fat stranding. Could be inflammation versus infection with ulcer Patient does complain of unintentional weight loss of 12 lb in the past month associated with abdominal pain, nausea and vomiting, malignancy should be ruled out. Consulted GI specialist Progress diet from NPO. to clear liquid diet Currently on IV pantoprazole 40 mg b.i.d. Patient complains of constipation for the past two weeks. No response to docusate, indicated MiraLax at this time. # UTI Urine analysis show positive esterase and white blood cells. Indicated empiric IV antibiotic (ceftriaxone) Ordered urine culture # Mild normocytic anemia We will monitor H&H Avoid NSAIDs at this point Currently on DVT prophylaxis with enoxaparin # Hypothyroidism Continue levothyroxine 50 mcg p.o. daily Ordered TSH: 2.42 # Hypertension # Diabetes # Dyslipidemia Gave her advice on healthy lifestyle habits Ordered hemoglobin A1c (pending) and lipid panel (within normal limits). 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 Box) Patient denies COPD or asthma. Did indicate albuterol PRN for dyspnea # Questionable rheumatoid arthritis Per patient she has rheumatoid arthritis, was not on methotrexate or other DMARDs. Currently we will avoid ibuprofen and other NSAIDs due to probable gastritis. # Peripheral neuropathy Continue gabapentin Goals of care discussed with patient for 22 minutes: Full code status Case discussed with Dr. Chanel, patient and nurses: Patient currently is asymptomatic, she has an appetite, was NPO for the past three days. Indicated clear liquid diet. Pending GI evaluation. Patient may benefit from endoscopy due to unintentional weight loss. Plan discussed with: Patient, Daughter, Other (grandaughter and nurses) My Orders My Orders Orders - SHERRY RIZVI RESIDENT Procedure Category Date Status Time Clear Liq Diet DIET 01/13/25 Transmitted Lunch Polyethylene Glycol PHA 01/14/25 In Process 17g Powder (Miralax 10:00 Triamterene/Hctz PHA 01/14/25 In Process (Dyazide 37.5/25mg 10:00 Dietary Evaluation Review Comments: 1) If patient remains NPO > 7 days, consider EN/TPN to meet at least 75% of estimated daily needs 2) Advance to 60g CCHO cardiac diet when medically feasible 3) Follow-up with gastroenterology and cardiology 4) Continue to monitor I&O, labs, and skin integrity Expected Outcomes/Goals: 1) patient to receive nutritional support within 7 days of NPO status 2) labs and GI symptoms to improve 3) diet to advance 4) f/u in 3-5 days Addendum Addendum Addendum I was physically present for the light portions of the service provided to patient by THE RESIDENT. I have reviewed the documentation, discussed the case with resident and agree with the resident's documentation except as noted. Also the patient's clinical case was discussed with the patient's nurse. This medical document was created using an electronic medical record system with computerized dictation system. Although this document has been carefully reviewed, there might still be some phonetic and typographical errors. These areas are purely typographical due to imperfections of the software programs, and do not reflect any compromise in the patient's medical care. Late signature. Date of Service: Jan 13, 2025 Billing Provider: ADRI CHANEL MD Common Visit Codes: 07965-[id number] INP/OBS CARE(HIGH) Secondary Visit Codes: 20108-[id number] CARE PLAN 30 MINUTES (22 minutes) SHERRY RIZVI RESIDENT Jan 13, 2025 14:45 ADRI CHANEL MD Jan 14, 2025 13:33
[2025-01-13] MEDS: POLYETHYLENE GLYCOL 17 GM PWDR PO ONE (15:16)
[2025-01-13] MEDS: HYDROcodone-ACET 5/325MG TAB PO PRN (15:27)
[2025-01-13 16:20] LABS: Magnesium 2.0 mg/dL (1.6-2.6)
[2025-01-13 19:49] LABS: INR 1.01 (0.9-1.15); Partial Thromboplastin Time 26.7 SEC (24.5-34.5); Prothrombin Time 10.7 sec (9.3-11.8)
[2025-01-13] MEDS: ONDANSETRON HCL 4 MG/2 ML VIAL IV PRN (21:09)
[2025-01-14] VITALS (10 sets, daily range): BP systolic 96–146; BP diastolic 53–82; PULSE 61–77; RESP 16–20; TEMP 97.6–98.3; O2SAT 92–99
--- NOTE | 2025-01-14 00:46 | DVH ---
CHEST RADIOGRAPH Indication: Pre-op Technique: Single frontal view of the chest was obtained COMPARISON: None FINDINGS: Lines and Tubes: None Lungs: Clear Pleura: No effusion. No pneumothorax. Cardiomediastinal contours: Unremarkable Bones: Unremarkable IMPRESSION: 1. No acute disease.
[2025-01-14 06:51] LABS: Hematocrit 33.5 % (36.0-46.0); Hemoglobin 11.1 g/dL (12.2-16.2); Mean Corpuscular Hemoglobin 28.5 pg (28.0-32.0); Mean Corpuscular Volume 86.3 fL (80.0-100.0); Nucleated Red Blood Cells % 0.2 %
[2025-01-14 06:58] LABS: Chloride 107 mmol/L (98-107); Potassium 4.2 mmol/L (3.5-5.1); Sodium 143 mmol/L (136-145)
[2025-01-14 06:59] LABS: Anion Gap 8 (5-15); Carbon Dioxide 28 mmol/L (20-31)
[2025-01-14 07:00] LABS: Calcium 8.9 mg/dL (8.7-10.4)
[2025-01-14 07:04] LABS: Glucose 81 mg/dL (74-106)
[2025-01-14 07:05] LABS: BUN/Creatinine Ratio 12.5 (10.0-20.0)
[2025-01-14 07:06] LABS: Blood Urea Nitrogen 9 mg/dL (9-23); INR 1.03 (0.9-1.15); Partial Thromboplastin Time 25.4 SEC (24.5-34.5); Prothrombin Time 10.9 sec (9.3-11.8)
[2025-01-14] MEDS ORDERED: HYDROCHLOROTHIAZIDE PO SCH (10:00)
[2025-01-14] MEDS ORDERED: [UNRECOGNIZED DRUG - OTHER] PO SCH (10:00)
[2025-01-14] MEDS ORDERED: TRIAMTER PO SCH (10:00)
[2025-01-14] MEDS ORDERED: LIDOCAINE VISCOUS 2% 15ML UD ONE (11:17)
[2025-01-14] MEDS ORDERED: SODIUM CHLORIDE LOCK 10 ML ONE (11:17)
[2025-01-14] MEDS ORDERED: diphenhdrAMINE HCL 50 MG/1 ML VL ONE (11:18)
[2025-01-14] MEDS ORDERED: fentaNYL CITRATE 100 MCG/2 ML VL ONE (11:18)
[2025-01-14] MEDS ORDERED: MIDAZOLAM HCL 5 MG/ML-1ML VIAL ONE (11:18)
[2025-01-14] MEDS: LIDOCAINE VISCOUS 2% 15ML UD MT ONE (13:43)
--- NOTE | 2025-01-14 14:11 | DVHOP2 ---
Operative Report DATE OF OPERATION: 01/14/25 PROCEDURE: Upper Endoscopy with biopsy. PREOPERATIVE INDICATION: The patient is a 74 -year-old female undergoing endoscopy for epigastric pain and weight loss POSTOPERATIVE DIAGNOSES: 1. 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 [id number] gastro paresis , mild gastritis, otherwise normal examination up to the 2nd and 3rd part of the duodenum PROCEDURE PERFORMED BY: Karthikeyan Funes GI NURSE: Shabana SCOPE: Olympus videoendoscope. ASA CLASS: 2. PREOPERATIVE MEDICATIONS: Versed 3 mg, Fentanyl 75 mcg, Benadryl 50 mg I administered moderate sedation throughout this _10_ minutes procedure. An independent trained observer pushed medications at my direction, and monitored the patient's level of consciousness and physiological status throughout. PROCEDURE IN DETAIL: After obtaining an informed consent, the patient was placed on left lateral decubitus position. The patient was then sedated with the above medications. A bite block was placed between her teeth. The endoscope was then passed through the oropharynx, into the esophagus, and through the stomach and pylorus up to the second and third part of the duodenum. The endoscope was then withdrawn. The 2nd and 3rd part of the duodenal were normal. 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 Tissue was firm. There was moderate retained gastric food contents suggestive of partial gastric outlet obstruction due to this ulcer On retroflexion otherwise fundus and cardia were normal. The endoscope was then withdrawn into distal esophagus Patient had a 1 cm sliding-type hiatal hernia slightly irregular squamocolumnar junction but no significant erosive esophagitis The remaining distal and proximal esophagus and oropharynx were unremarkable The patient tolerated the procedure well without difficulty. COMPLICATIONS : None SPECIMENS: Duodenal biopsies Pyloric duodenal ulcer biopsies Gastric antrum biopsies DISPOSITION: Transfer back to the floor Stable PLAN: 1. Await for biopsy result 2. Will place pt on Protonix 40 mg bid 3. Carafate suspension 1 g p.o. 4 times a day 4. DC aspirin NSAIDs smoking alcohol 5. Resume full liquid diet 6. Reglan 5 mg IV q.8 hours KARTHIKEYAN FUNES MD Jan 14, 2025 14:11
[2025-01-14] MEDS: METOCLOPRAMIDE HCL 5MG/ml INJ 2ml VIAL IV ONE (14:15)
[2025-01-14] MEDS: TRIAMTERENE/HCTZ 37.5/25 MG CAP/TAB PO SCH (15:57)
--- NOTE | 2025-01-14 16:51 | DVHPNRES ---
Progress Note Date Seen: Jan 14, 2025 Resident Creating Document: MURIEL GARCIA RESIDENT Medical Necessity Reason Pt with a Central, PICC or Fol: No Subjective Review of Systems 74-year-old female came to ER with progressive epigastric pain which is burning in nature associated with nausea and vomiting, abdominal distention and unintentional weight loss approximately 12 lb last month. Patient reported constipation and difficult to passes stool, last bowel movement approximately week before. Patient denies any bleeding, sick contact, chest pain, dyspnea, any signs symptoms of active bleeding. Past medical history: HTN, type 2 diabetes mellitus, HLD, gastritis, hypothyroidism, lung cancer status post right base lobectomy approximately 10 years ago, peripheral neuropathy. Surgical history: Bilateral tubal ligation, right lung base lobectomy, cyst removal left elbow, strabismus correction. Home medication: Verapamil, gabapentin, metformin, triamterene- hydrochlorothiazide, atorvastatin, levothyroxine, [place], calcium carbonate. Patient seen and evaluated in bedside today. EGD done today. Patient daughter in bedside and discussed EGD finding. Patient and daughter verbalized understanding vertebral discussed. Started clear liquid diet and we will advanced diet as tolerated. Patient denies any abdominal pain, nausea, vomiting, diarrhea or any other acute distress. No no acute event overnight, vitals in normal limits. Objective vital signs Vital Sign Date Time Temp Pulse Resp B/P (MAP) Pulse Ox O2 Delivery O2 Flow Rate FiO2 01/14/25 15:58 60 113/53 01/14/25 14:02 16 100 01/14/25 13:04 97.6 97.6 01/14/25 10:29 Room Air 0.0 01/14/25 10:29 21 Total Intake and Output 01/13/25 01/13/25 01/14/25 15:00 23:00 07:00 Intake Total 300 ml Balance 300 ml medications Current Medications Medications Dose Ordered Sig/Lyric Route Start Time Stop Time Status Last Admin Dose Admin Sodium Chloride 1,000 ml @ 60 mls/hr [id number] IV 01/12/25 16:30 01/13/25 15:31 60 MLS/HR Acetaminophen/ Hydrocodone Bitart 1 tab Q4HP PRN PO 01/12/25 16:30 01/14/25 15:58 1 TAB Ondansetron HCl 4 mg Q4HP PRN IV 01/12/25 16:30 01/13/25 21:09 4 MG Enoxaparin Sodium 40 mg DAILY SC 01/13/25 10:00 01/13/25 10:15 40 MG Acetaminophen 650 mg Q6HP PRN PO 01/12/25 16:30 Morphine Sulfate 2 mg Q4HPRN PRN IV 01/12/25 16:30 Docusate Sodium 100 mg BID PO 01/12/25 22:00 01/13/25 21:08 100 MG Diagnostic Test (Pha) 1 strip ACHS 01/12/25 17:00 01/14/25 11:30 1 STRIP Insulin Human Regular ACHS SC 01/12/25 17:00 Dextrose 50 ml UD PRN IV 01/12/25 16:45 Atorvastatin Calcium 20 mg HS PO 01/12/25 22:00 01/13/25 21:09 20 MG Gabapentin 100 mg BID PO 01/12/25 22:00 01/13/25 21:09 100 MG Levothyroxine Sodium 50 mcg QAM PO 01/13/25 07:00 01/14/25 06:57 50 MCG Verapamil HCl 240 mg DAILY PO 01/13/25 10:00 01/14/25 15:58 240 MG Albuterol 2.5 mg Q4HPRN PRN NEB 01/12/25 17:30 Cancel Polyethylene Glycol 17 gm DAILYPRN PRN PO 01/14/25 10:00 Triamterene/HCTZ 1 cap DAILY PO 01/14/25 10:00 01/14/25 15:57 1 CAP Pantoprazole Sodium 40 mg BID IV 01/13/25 22:00 01/14/25 08:51 40 MG Ceftriaxone Sodium 50 ml @ 100 mls/hr DAILY@09 IV 01/14/25 09:00 01/14/25 08:51 100 MLS/HR Sucralfate 1 gm QID@0600,1130,1700,2200 PO 01/14/25 17:00 Examination General: Lucid, afebrile, mucosae are moist Cardiovascular: Normal S1 and S2. No murmurs, gallops or rubs Respiratory: Normal ventilation mechanics. Clear lung sounds on auscultation Abdomen: Soft, nontender, no organomegaly, normal bowel sounds MSK/skin: Mobilizes 4 limbs. Skin is dry and warm Neurological: Oriented in 3 spheres. No motor no sensitive deficits. Pupils are isocoric and reactive Examination: CVS:Abnormal laboratory and microbiology Laboratory Tests 01/14/25 06:20 Test 01/14/25 06:20 Range/Units Serum Glucose 81 74-106 mg/dL Problem List/Assessment/Plan Problem List/Assessment/Plan # Intractable abdominal pain # Probable symptomatic gastritis # Rule out malignancy/peptic ulcer # Constipation Completed abdomen and pelvis CT which showed thickening of distal stomach/pyloric wall with adjacent fat stranding. Could be inflammation versus infection with ulcer Patient does complain of unintentional weight loss of 12 lb in the past month associated with abdominal pain, nausea and vomiting, malignancy should be ruled out. 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 [id number] gastro paresis , mild gastritis, otherwise normal examination up to the 2nd and 3rd part of the duodenum. await for biopsy result Protonix 40 mg p.o. b.i.d. Carafate suspension 1 g p.o. q.6 H Started clear liquid diet and advanced as tolerated Avoid NSAIDs # UTI Urine analysis show positive esterase and white blood cells. Indicated empiric IV antibiotic (ceftriaxone) urine culture sensitivity pending # Mild normocytic anemia today hemoglobin 11.1, HCT 33.5 Avoid NSAIDs at this point Currently on DVT prophylaxis with enoxaparin # Hypothyroidism Continue levothyroxine 50 mcg p.o. daily Ordered TSH: 2.42 # Hypertension # Diabetes # Dyslipidemia # Asymptomatic hypercalcemia. 10.3>9.7 Gave her advice on healthy lifestyle habits Ordered hemoglobin A1c 5.7 and lipid panel (within normal limits). On mild insulin sliding scale Continued home medication (atorvastatin, verapamil, triamterene- hydrochlorothiazide) # History of lung cancer status post right base lobectomy with no recurrence # Ex tobacco abuse Patient follows with technician assistant at [place] [facility] (Dr. Box) Patient denies COPD or asthma. Did indicate albuterol PRN for dyspnea # Questionable rheumatoid arthritis Per patient she has rheumatoid arthritis, was not on methotrexate or other DMARDs. Currently we will avoid ibuprofen and other NSAIDs due to probable gastritis. # Peripheral neuropathy Continue gabapentin Diet: Started clear liquid and advanced accordingly DVT prophylaxis: Not indicated patient ambulatory GI prophylaxis: Pantoprazole Of care discussions. More than 23 minute spent with patient and daughter. Full code status. Case discussed with Dr. Oneal Plan discussed with: Patient, Other (Nurse, daughter) Dietary Evaluation Review Comments: 1) If patient remains NPO > 7 days, consider EN/TPN to meet at least 75% of estimated daily needs 2) Advance to 60g CCHO cardiac diet when medically feasible 3) Follow-up with gastroenterology and cardiology 4) Continue to monitor I&O, labs, and skin integrity Expected Outcomes/Goals: 1) patient to receive nutritional support within 7 days of NPO status 2) labs and GI symptoms to improve 3) diet to advance 4) f/u in 3-5 days Date of Service: Jan 14, 2025 Billing Provider: HELDER ONEAL MD Common Visit Codes: [id number] INP/OBS CARE(HIGH) MURIEL GARCIA RESIDENT Jan 14, 2025 16:51 SHERRY RIZVI RESIDENT Jan 17, 2025 02:13 HELDER ONEAL MD Jan 17, 2025 22:18
[2025-01-14] MEDS: SUCRALFATE 1 GM/10 ML ORAL SUSP PO SCH (21:03)
[2025-01-15] VITALS (7 sets, daily range): BP systolic 93–134; BP diastolic 56–75; PULSE 58–96; RESP 18–20; TEMP 97.9–98.6; O2SAT 71–97
[2025-01-15 07:32] LABS: Anion Gap 8 (5-15); Carbon Dioxide 29 mmol/L (20-31); Chloride 106 mmol/L (98-107); Potassium 4.1 mmol/L (3.5-5.1); Sodium 143 mmol/L (136-145)
[2025-01-15 07:34] LABS: Calcium 9.2 mg/dL (8.7-10.4)
[2025-01-15 07:38] LABS: Hematocrit 34.2 % (36.0-46.0); Hemoglobin 11.5 g/dL (12.2-16.2); Mean Corpuscular Hemoglobin 29.0 pg (28.0-32.0); Mean Corpuscular Volume 86.3 fL (80.0-100.0); Nucleated Red Blood Cells % 0.0 %
[2025-01-15 07:39] LABS: BUN/Creatinine Ratio 8.1 (10.0-20.0); Glucose 78 mg/dL (74-106)
[2025-01-15 07:50] LABS: Blood Urea Nitrogen 6 mg/dL (9-23)
--- NOTE | 2025-01-15 08:08 | ECG ---
[facility] Test Date: 2025-01-13 Test Time: 19:47:49 Pat Name: MIRA GOLDBERG Department: Room: 0291 B Gender: F [employer] Maker: kavon : [id number] Requested By: KARTHIKEYAN SHEETS Order Number: [id number] Reading MD: Michael Dumont Measurements Intervals [place] Rate: 66 P: 67 OR: 182 QRS: 64 QRSD: 77 T: 74 QT: 381 QTc: 400 Interpretive Statements Sinus rhythm Electronically Signed On 01-16-2025 14:31:21 PDT by Michael Dumont Please click the below link to view image of tracing.
[2025-01-15] MEDS: POLYETHYLENE GLYCOL 17 GM PWDR PO PRN (09:27)
--- NOTE | 2025-01-15 13:37 | DVHPN2 ---
Progress Note Date Seen: Jan 15, 2025 Resident Creating Document: NALDO CARLOS RESIDENT Medical Necessity Reason Pt with a Central, PICC or Fol: No Subjective Review of Systems Patient is a 74-year-old female with past medical history of hypertension, type 2 diabetes, dyslipidemia, hypothyroidism, right sided lung cancer, gastritis, questionable rheumatoid arthritis, who comes in due to abdominal pain. According to the patient, she has been experiencing abdominal pain for the past 1 month, however, over the last 2 days he got more severe, rates it as 9-10/10, constant, worse with eating without any relieving factors and associated with constipation that was not relieved by MiraLax or magnesium. The time of my assessment patient denies any active ongoing abdominal pain. CT abdomen pelvis showed thickening of the distal stomach/pyloric wall with adjacent fat stranding could be due to inflammation/infection with an ulcer in consideration. Patient underwent EGD yesterday Patient seen and examined at bedside As tolerating liquid diet Reports improvement in abdominal pain No nausea no vomiting. Objective vital signs Vital Sign Date Time Temp Pulse Resp B/P (MAP) Pulse Ox O2 Delivery O2 Flow Rate FiO2 01/15/25 13:00 98.6 71 18 106/73 (84) 95 98.6 01/15/25 10:30 Room Air* 0 21 Total Intake and Output 01/14/25 01/14/25 01/15/25 15:00 23:00 07:00 Intake Total 10 ml 200 ml Balance 10 ml 200 ml medications Current Medications Medications Dose Ordered Sig/Lyric Route Start Time Stop Time Status Last Admin Dose Admin Sodium Chloride 1,000 ml @ 60 mls/hr [id number] IV 01/12/25 16:30 01/14/25 18:47 60 MLS/HR Acetaminophen/ Hydrocodone Bitart 1 tab Q4HP PRN PO 01/12/25 16:30 01/15/25 13:15 1 TAB Ondansetron HCl 4 mg Q4HP PRN IV 01/12/25 16:30 01/13/25 21:09 4 MG Enoxaparin Sodium 40 mg DAILY SC 01/13/25 10:00 01/15/25 09:27 40 MG Acetaminophen 650 mg Q6HP PRN PO 01/12/25 16:30 Morphine Sulfate 2 mg Q4HPRN PRN IV 01/12/25 16:30 Docusate Sodium 100 mg BID PO 01/12/25 22:00 01/15/25 09:26 100 MG Diagnostic Test (Pha) 1 strip ACHS 01/12/25 17:00 01/15/25 06:02 1 STRIP Insulin Human Regular ACHS SC 01/12/25 17:00 Dextrose 50 ml UD PRN IV 01/12/25 16:45 Atorvastatin Calcium 20 mg HS PO 01/12/25 22:00 01/14/25 21:06 20 MG Gabapentin 100 mg BID PO 01/12/25 22:00 01/15/25 09:26 100 MG Levothyroxine Sodium 50 mcg QAM PO 01/13/25 07:00 01/15/25 06:01 50 MCG Verapamil HCl 240 mg DAILY PO 01/13/25 10:00 01/15/25 09:26 240 MG Albuterol 2.5 mg Q4HPRN PRN NEB 01/12/25 17:30 Cancel Polyethylene Glycol 17 gm DAILYPRN PRN PO 01/14/25 10:00 01/15/25 09:27 17 GM Triamterene/HCTZ 1 cap DAILY PO 01/14/25 10:00 01/15/25 09:26 1 CAP Pantoprazole Sodium 40 mg BID IV 01/13/25 22:00 01/15/25 09:25 40 MG Ceftriaxone Sodium 50 ml @ 100 mls/hr DAILY@09 IV 01/14/25 09:00 01/15/25 09:25 100 MLS/HR Sucralfate 1 gm QID@0600,1130,1700,2200 PO 01/14/25 17:00 01/15/25 13:15 1 GM Examination General Appearance: Cooperative. Well developed. Well nourished. NAD Head Exam: Normal inspection Neck Exam: Normal inspection. Non-tender. Normal alignment Pulmonary/Respiratory: Chest non-tender. Clear bilateral breath sounds, no crackles, no wheezing. Cardiovascular/Chest: Regular rate and rhythm. No murmurs. No JVD. Abdominal Exam: Normal bowel sounds. Soft. normal abdomen, no visible veins, Nontender. No hepatospenomegaly. No masses Ankle Exam: Negative ankle edema Neuro/Mental Status: A&O x4. Coherent. Skin Exam: Normal inspection. Normal color. Warm. Dry laboratory and microbiology Laboratory Tests 01/15/25 06:09 Test 01/15/25 06:09 Range/Units Serum Glucose 78 74-106 mg/dL Microbiology Date/Time Source Procedure Growth Status 01/14/25 12:36 Voided Urine Urine Culture - Preliminary Resulted Labs and/or images reviewed: Labs reviewed by me, Image(s) reviewed by me Problem List/Assessment/Plan Problem List/Assessment/Plan Acute intractable abdominal pain likely due to partial outlet obstruction Pyloric-Duodenal channel acute on chronic spasms [id number] gastroparesis History of gastritis History of lung cancer Type 2 diabetes Hypothyroidism Constipation Acute complicated UTI Plan: IV NS at 60 cc/hour IV ceftriaxone Docusate MiraLax IV Protonix b.i.d. Carafate 1 g p.o. q.i.d. Discontinue aspirin, NSAIDs, smoking and alcohol Continue full liquid diet for another few days Metoclopramide 5 mg IV Q 8 hours Follow up with GI in the outpatient clinic Thank you so much for the opportunity to consult on your patient. GI team will follow the patient. In case of any questions or concerns please feel free to reach out. Plan discussed with Dr. Funes Plan discussed with: Patient, Other (RN) Dietary Evaluation Review Comments: 1) If patient remains NPO > 7 days, consider EN/TPN to meet at least 75% of estimated daily needs 2) Advance to 60g CCHO cardiac diet when medically feasible 3) Follow-up with gastroenterology and cardiology 4) Continue to monitor I&O, labs, and skin integrity Expected Outcomes/Goals: 1) patient to receive nutritional support within 7 days of NPO status 2) labs and GI symptoms to improve 3) diet to advance 4) f/u in 3-5 days NALDO CARLOS RESIDENT Jan 15, 2025 13:37
[2025-01-15] MEDS ORDERED: SUCR1SUS26 PO (14:32)
[2025-01-15] MEDS ORDERED: PANT40T PO (14:32)
[2025-01-15] MEDS: METOCLOPRAMIDE HCL 5MG/ml INJ 2ml VIAL IV SCH (14:45)
--- NOTE | 2025-01-15 14:48 | DVHDSRES ---
Discharge Summary Date of Admission Resident Creating Document: MURIEL GARCIA RESIDENT Jan 12, 2025 at 16:28 Date of Discharge: Jan 15, 2025 Labs/Diagnostic Data: Laboratory Results Test 01/15/25 11:07 01/15/25 06:09 01/14/25 06:20 01/13/25 07:50 POC Glucose 79 mg/dl (70-106) White Blood Count 3.5 10^3/uL (4.4-10.8) Red Blood Count 3.97 10^6/uL (4.0-5.20) Hemoglobin 11.5 g/dL (12.2-16.2) Hematocrit 34.2 % (36.0-46.0) Mean Corpuscular Volume 86.3 fL (80.0-100.0) Mean Corpuscular Hemoglobin 29.0 pg (28.0-32.0) Mean Corpuscular Hemoglobin Concent 33.6 g/dL (32.0-36.0) Red Cell Distribution Width 14.0 % (11.8-14.3) Platelet Count 283 10^3/uL (140-450) Mean Platelet Volume 7.6 fL (6.9-10.8) Neutrophils (%) (Auto) 58.9 % (37.0-80.0) Lymphocytes (%) (Auto) 27.5 % (10.0-50.0) Monocytes (%) (Auto) 10.2 % (0.0-12.0) Eosinophils (%) (Auto) 3.0 % (0.0-7.0) Basophils (%) (Auto) 0.4 % (0.0-2.0) Neutrophils # (Auto) 2.1 10 ^3/uL (1.6-8.6) Lymphocytes # (Auto) 1.0 10 ^3/uL (0.4-5.4) Monocytes # (Auto) 0.4 10 ^3/uL (0-1.3) Eosinophils # (Auto) 0.1 10 ^3/uL (0-0.8) Basophils # (Auto) 0 10 ^3/uL (0-0.2) Nucleated Red Blood Cells 0.0 % Sodium Level 143 mmol/L (136-145) Potassium Level 4.1 mmol/L (3.5-5.1) Chloride Level 106 mmol/L (98-107) Carbon Dioxide Level 29 mmol/L (20-31) Anion Gap 8 (5-15) Blood Urea Nitrogen 6 mg/dL (9-23) Creatinine 0.74 mg/dL (0.550-1.02) Glomerular Filtration Rate Calc 84 mL/min (>90) BUN/Creatinine Ratio 8.1 (10.0-20.0) Serum Glucose 78 mg/dL (74-106) Calcium Level 9.2 mg/dL (8.7-10.4) Prothrombin Time 10.9 sec (9.3-11.8) Prothrombin Time INR 1.03 (0.9-1.15) Activated Partial Thromboplast Time 25.4 SEC (24.5-34.5) Phosphorus Level 3.5 mg/dL (2.4-5.1) Magnesium Level 2.0 mg/dL (1.6-2.6) Total Bilirubin 0.5 mg/dL (0.2-1.0) Aspartate Amino Transferase (AST) 19 U/L (13-40) Alanine Aminotransferase (ALT) 16 U/L (7-40) Alkaline Phosphatase 43 U/L (46-116) Total Protein 6.9 g/dL (5.7-8.2) Albumin 4.1 g/dL (3.2-4.8) Vitamin B12 Level 2800 pg/mL (211-911) Vitamin D 25-Hydroxy 48.6 ng/mL (30.0-100) Hepatitis B Surface Antigen Negative (Negative) Hepatitis C Antibody Negative (Negative) Test 01/13/25 01:30 01/12/25 10:58 Urine Color Light-yellow (Yellow) Urine Clarity Clear (Clear) Urine pH 5.5 (5.0-9.0) Urine Specific [place] 1.014 (1.001-1.035) Urine Protein Negative (Negative) Urine Ketones Negative (Negative) Urine Blood Negative /uL (Negative) Urine Nitrite Negative (Negative) Urine Bilirubin Negative (Negative) Urine Urobilinogen Normal mg/dL (Negative) Urine Leukocyte Esterase 2+ /uL (Negative) Urine RBC None seen /hpf (0 - 4) Urine Microscopic WBC 7 /HPF (0-5) Urine Squamous Epithelial Cells Few /hpf (<5) Urine Bacteria None seen /hpf (None Seen) Urine Hyaline Casts Few /lpf (0 - 2) Urine Mucus Few (None Seen) Urine Glucose Normal mg/dL (Normal) Hemoglobin A1c 5.6 % A1C (<5.7) Triglycerides Level 69 mg/dL (< 150) Cholesterol Level 127 mg/dL (< 200) LDL Cholesterol 59 mg/dL (< 100) HDL Cholesterol 56 mg/dL (40-59) Lipase 49 U/L (12-53) Thyroid Stimulating Hormone (TSH) 2.42 uIU/mL (0.55-4.78) Other Laboratory Tests 01/15/25 06:09 Brief Hx & Hospital Course: This is a 74-year-old female came to ER with progressive epigastric pain which is burning in nature associated with nausea and vomiting, abdominal distention and unintentional weight loss approximately 12 lb last month. Patient reported constipation and difficult to passes stool, last bowel movement approximately week before. Patient denies any bleeding, sick contact, chest pain, dyspnea, any signs symptoms of active bleeding. Past medical history: HTN, type 2 diabetes mellitus, HLD, gastritis, hypothyroidism, lung cancer status post right base lobectomy approximately 10 years ago, peripheral neuropathy. Surgical history: Bilateral tubal ligation, right lung base lobectomy, cyst removal left elbow, strabismus correction. Home medication: Verapamil, gabapentin, metformin, triamterene- hydrochlorothiazide, atorvastatin, levothyroxine, [place], calcium carbonate. Hospital course: Patient was admitted intractable abdominal pain due to acute gastritis. CT abdomen shows thickening of the distal stomach/ pyloric wall with adjacent fat stranding. during hospital stay, Patient was treated conservatively. 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 [id number] gastro paresis , mild gastritis, otherwise normal examination up to the 2nd and 3rd part of the duodenum, await for biopsy result. Lab shows UTI and patient having symptoms of urinary frequency and suprapubic pain. Patient treated with IV antibiotic for UTI and symptoms significantly improved. Patient started initially clear then full liquid diet which she well tolerated . Patient advised to continue full quit diet for few days and then start soft mechanical carbohydrate consistent diet. Patient currently denies any nausea, vomiting, abdominal pain, diarrhea, fever or any other acute symptoms. patient discharged with p.o. Keflex antibiotic and advised to start all of her home medication. Patient is hemodynamically stable for discharge. Patient has received maximum benefit from inpatient treatment. Time was given to answer patient is questions and concerns in [place] terms. Patient verbalized understanding and agree with treatment and follow-up plan patient was recommended to return to ER if any experienced or any worsening of symptoms including fever, hemoptysis, hematochezia. Follow-up with outpatient discharge clinic on Monday morning, with primary care within 2 weeks after discharge . Call GI clinic for biopsy report . Physical Examination (PE): GENERAL APPEARANCE: Well developed, well nourished, alert and cooperative, and appears to be in no acute distress. HEAD: normocephalic. EYES: PERRL, EOMI. Fundi normal, vision is grossly intact. EARS: External auditory canals and tympanic membranes clear, hearing grossly intact. THROAT: Oral cavity and pharynx normal. No inflammation, swelling, exudate, or lesions. Teeth and gingiva in good general condition. NECK: Neck supple, non-tender without lymphadenopathy, masses or thyromegaly. CARDIAC: Normal S1 and S2. No S3, S4 or murmurs. Rhythm is regular. There is no peripheral edema, cyanosis or pallor. Extremities are warm and well perfused. Capillary refill is less than 2 seconds. No carotid bruits. LUNGS: Clear to auscultation and percussion without rales, rhonchi, wheezing or diminished breath sounds. ABDOMEN: Positive bowel sounds. Soft, nondistended, nontender. No guarding or rebound. No masses. MUSKULOSKELETAL: Adequately aligned spine. ROM intact spine and extremities. EXTREMITIES: No significant deformity or joint abnormality. No edema. Peripheral pulses intact. No varicosities. LOWER EXTREMITY: Examination of both feet reveals all toes to be normal in size and symmetry, normal range of motion. NEUROLOGICAL: CN II-XII intact. Strength and sensation symmetric and intact throughout. Reflexes 2+ throughout. Cerebellar testing normal. SKIN: Skin normal color, texture . Operations or Procedures CT CT AB PEL WO CON-NO ORAL OR IV INDICATION: pain EXAM DATE: 01/12/2025 10:53 AM COMPARISON: None RADIATION DOSE: CTDIvol: 12.12 mGy, DLP: 610.33 mGy*cm PROCEDURE: Helical CT images were obtained of the abdomen and pelvis without IV contrast Sagittal and coronal reconstructions are provided. ORAL CONTRAST: None. ADDITIONAL IMAGES / REFORMATS: None All CT scans at this medical facility are performed using dose modulation techniques as appropriate to a performed exam including the following: Automated exposure control was utilized; adjustment of the MA and/or KV according to patient size; and use of iterative reconstruction technique. FINDINGS: LUNG BASE: Mild right basilar atelectasis with pleural calcification. LIVER: Coarse calcifications are seen in the liver GALLBLADDER AND BILIARY TREE: No calcified gallstones. Normal caliber wall. No intra- or extrahepatic biliary ductal dilation. PANCREAS: Normal. SPLEEN: Normal. BOWEL: Severe colonic diverticulosis. Normal appendix. Thickening of the distal stomach / pyloric wall with adjacent fat stranding. Stomach is distended with food. ADRENALS: Normal. KIDNEYS AND URETER: Normal. BLADDER: Normal. REPRODUCTIVE ORGANS: Normal. LYMPH NODES:No lymphadenopathy. PERITONEUM: No ascites or free air. No other fluid collection. VESSELS: Scattered atherosclerotic calcifications are noted. RETROPERITONEUM: Normal. ABDOMINAL WALL: Normal. BONES: Scattered osseous degenerative changes are noted. IMPRESSION: Thickening of the distal stomach / pyloric wall with adjacent fat stranding could be due to inflammation / infection with an ulcer a consideration. ATED BY: NITESH DYER MD DICTATED DATE/TIME: 01/12/25 1129 CHEST RADIOGRAPH Indication: Pre-op Technique: Single frontal view of the chest was obtained COMPARISON: None FINDINGS: Lines and Tubes: None Lungs: Clear Pleura: No effusion. No pneumothorax. Cardiomediastinal contours: Unremarkable Bones: Unremarkable IMPRESSION: 1. No acute disease. ATED BY: THANH PURDY MD DICTATED DATE/TIME: 01/14/25 0044 Operative Report DATE OF OPERATION: 01/14/25 PROCEDURE: Upper Endoscopy with biopsy. PREOPERATIVE INDICATION: The patient is a 74 -year-old female undergoing endoscopy for epigastric pain and weight loss POSTOPERATIVE DIAGNOSES: 1. 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 [id number]-hl-itszqohv gastro paresis , mild gastritis, otherwise normal examination up to the 2nd and 3rd part of the duodenum PROCEDURE PERFORMED BY: Karthikeyan Sheets GI NURSE: Shabana SCOPE: Olympus videoendoscope. ASA CLASS: 2. PREOPERATIVE MEDICATIONS: Versed 3 mg, Fentanyl 75 mcg, Benadryl 50 mg I administered moderate sedation throughout this _10_ minutes procedure. An independent trained observer pushed medications at my direction, and monitored the patient's level of consciousness and physiological status throughout. PROCEDURE IN DETAIL: After obtaining an informed consent, the patient was placed on left lateral decubitus position. The patient was then sedated with the above medications. A bite block was placed between her teeth. The endoscope was then passed through the oropharynx, into the esophagus, and through the stomach and pylorus up to the second and third part of the duodenum. The endoscope was then withdrawn. The 2nd and 3rd part of the duodenal were normal. 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 Tissue was firm. There was moderate retained gastric food contents suggestive of partial gastric outlet obstruction due to this ulcer On retroflexion otherwise fundus and cardia were normal. The endoscope was then withdrawn into distal esophagus Patient had a 1 cm sliding-type hiatal hernia slightly irregular squamocolumnar junction but no significant erosive esophagitis The remaining distal and proximal esophagus and oropharynx were unremarkable The patient tolerated the procedure well without difficulty. COMPLICATIONS : None SPECIMENS: Duodenal biopsies Pyloric duodenal ulcer biopsies Gastric antrum biopsies DISPOSITION: Transfer back to the floor Stable PLAN: 1. Await for biopsy result 2. Will place pt on Protonix 40 mg bid 3. Carafate suspension 1 g p.o. 4 times a day 4. DC aspirin NSAIDs smoking alcohol 5. Resume full liquid diet 6. Reglan 5 mg IV q.8 hours KARTHIKEYAN SHEETS MD Jan 14, 2025 14:11 Condition at Discharge: Stable Final Diagnosis/Problems List # Acute gastritis # Peptic ulcer disease # Partial gastric outlet obstruction # Gastroparesis # Rule out malignancy - pending biopsy result # Chronic constipation # Urinary tract infection # Mild normocytic anemia # ESSENTIAL Hypertension # Type 2 diabetes mellitus # Questionable rheumatoid arthritis- not on medication # H/o lung cancer status post right base lobectomy with no recurrence # Ex tobacco abuse # Peripheral neuropathy Discharge Disposition: Home Discharge Instruct/Medications Diet: Consistent carbohydrate Activity: No Restrictions, As Tolerated Scheduled Atorvastatin Calcium (Atorvastatin Calcium), 1 TAB PO DAILY, (Reported) Calcium Carbonate (Calcium), 600 MG PO DAILY, (Reported) Cephalexin (Keflex Capsule), 1 CAP PO QID Gabapentin (Gabapentin), 1 CAP PO BID, (Reported) Hydrochlorothiazide W/Triamter (Triamterene/Hydrochloroth), 1 CAP PO DAILY, (Reported) Hydrocodone-Acetaminophen (Hydrocodone Bitartrate/AC 10-325 mg), 1 TAB PO TID, (Reported) Levothyroxine Sodium (Levothyroxine Sodium), 1 TAB PO DAILY, (Reported) Metformin Hydrochloride (Metformin Hcl), 1 TAB PO DAILY, (Reported) Pantoprazole Sodium Sesquihydr (Pantoprazole Sodium), 40 MG PO BID Sucralfate (Carafate Susp), 1 GM PO QID@0600,1130,1700,2200 Verapamil HCl (Verapamil Hydrochloride E), 1 TAB PO DAILY, (Reported) Discharge Statement: "Patient was advised to return to the ER or call 911 if any headaches, dizziness, shortness of breath, chest pain, abdominal pain, bleeding, fevers, or worsening of medical condition. Patient was counseled about treatment plan, medications, possible side effects, patientverbalized understanding. All questions were answered to the best of my ability. This discharge took greater then 30 minutes in planning, reviewing documentation, counseling the patient, and discussing with other team members." ASSESSMENT ASSESSMENT Assessment Acute gastritis. Date of Service: Jan 15, 2025 Billing Provider: HELDER HOLLEY MD Common Visit Codes: 20284-LYA/OBS DISCH DAY >30min MURIEL GARCIA RESIDENT Jan 15, 2025 14:48 SHERRY RIZVI RESIDENT Jan 17, 2025 02:17 HELDER HOLLEY MD Jan 17, 2025 22:34
[2025-01-15] MEDS ORDERED: CEPH250C PO (15:59)
== END 2025-01-15 17:00 | disposition home or self-care (01) | DRG 392 ==
LOC: ER 09:46 → OVERFLOW 16:28 → WEST WING 22:59
PROVIDERS: ADMIT Student in an Organized Health Care Education/Training Program; ATTEND Student in an Organized Health Care Education/Training Program
PROC: 0DB78ZX Excision of Stomach, Pylorus, Via Natural or Artificial Opening Endoscopic, Diagnostic (ICD-10-PCS; 2025-01-14)
PROC: 0DB98ZX Excision of Duodenum, Via Natural or Artificial Opening Endoscopic, Diagnostic (ICD-10-PCS; principal; 2025-01-14 13:40)
DX: K29.00 Acute gastritis without bleeding (principal); K31.1 Adult hypertrophic pyloric stenosis; N39.0 Urinary tract infection, site not specified; K26.3 Acute duodenal ulcer without hemorrhage or perforation; E78.5 Hyperlipidemia, unspecified; D64.9 Anemia, unspecified; K44.9 Diaphragmatic hernia without obstruction or gangrene; K31.84 Gastroparesis; E03.9 Hypothyroidism, unspecified; I10 Essential (primary) hypertension; M06.9 Rheumatoid arthritis, unspecified; K59.09 Other constipation; E83.52 Hypercalcemia; E11.43 Type 2 diabetes mellitus with diabetic autonomic (poly)neuropathy; E11.42 Type 2 diabetes mellitus with diabetic polyneuropathy; Z85.118 Personal history of other malignant neoplasm of bronchus and lung; Z79.899 Other long term (current) drug therapy; Z88.0 Allergy status to penicillin; Z79.84 Long term (current) use of oral hypoglycemic drugs
CPT/HCPCS: 36415; 43239; 71045; 74176; 80048; 80053; 80061; 81001; 82306; 82607; 82962; 83036; 83690; 83735; 84100; 84443; 85025; 85610; 85730; 86803; 86850; 86900; 86901; 87086; 87340; 93005; 96374; 96375; G0378; J2250; J2405; J2470

== ENCOUNTER 2025-02-13 01:17 | Inpatient (IN) | payer OTHER ==
[~2025-02-13] VITALS: Ht 175.3 cm; Wt 76.2 kg
[2025-02-13] VITALS (7 sets, daily range): BP systolic 103–127; BP diastolic 54–77; PULSE 71–84; RESP 16–19; TEMP 98–99.6; O2SAT 92–98
[~2025-02-13 01:17] MED LIST: AMOX500T3 PO; ATOR20TA50 PO; CALC1TAB92 PO; CEPH250C PO; CLAR1TAB21 PO; GAB100C PO; HYDR-4798 PO; LEVO50TA7 PO; METF-370 PO; PANT40T PO; PANT40TA2 PO; SUCR1SUS26 PO; TRIA37.586 PO; VERA240T93 PO
--- NOTE | 2025-02-13 02:07 | ED.PDOC ---
General HPI Comments 75 year old female with PMHx arthritis, cancer, DM, HLD, HTN, thyroid disease, PUD presents to the ED with a chief compliant of urinary retention onset 1 day. Patient states she was discharged from [facility] on 01/15/25, had an endoscopy on 01/14/25, states she was diagnosed with H. Pylori, was to be followed up with Dr. Funes. Patient states she was presribed a medication in the penicillin family, has an allergy to penicillin, was told not to take it, was not prescribed a different one. For the past 2 weeks, patient has been experiencing constipation, has pressure sensation when she sits. For the past day, she has been experiencing urinary retention with burning sensation. Denies hematuria, nausea, vomiting, diarrhea, headache, dizziness, melena, blood in stool. No other symptoms or modifying factors present at this time. Chief Complaint: Urinary Time Seen by MD: 01:50 Primary Care Provider: NNEKA Holder notes: Medications, Allergies Allergies: Uncoded Allergies: PENICILLIN (Allergy, Unknown, 11/23/17) Home Meds Active Scripts Pantoprazole Sodium Sesquihydr (Protonix) 40 Mg Tab, 40 MG PO BID for 30 Days, #60 TAB 2 Refills Prov:NALDO CARLOS [facility] 02/05/25 Clarithromycin (Clarithromycin) 500 Mg Tab, 1 TAB PO BID for 14 Days, #28 TAB Prov:CARLOSNALDO [facility] 02/05/25 Amoxicillin Trihydrate (Amoxicillin) 500 Mg Tab, 2 TAB PO BID for 14 Days, #56 TAB Prov:BREANNANALDO [facility] 02/05/25 Cephalexin (KEFLEX CAPSULE) 250 Mg Cp, 1 CAP PO QID for 3 Days, #28 CAP Prov:SHERRY RIZVI [facility] 01/15/25 Pantoprazole Sodium Sesquihydr (Pantoprazole Sodium) 40 Mg Tab, 40 MG PO BID for 30 Days, #60 TAB Prov:SHERRY RIZVI [facility] 01/15/25 Sucralfate (CARAFATE SUSP) 1 Gm/10 Ml Ss, 1 GM PO QID@0600,1130,1700,2200 for 30 Days, #30 ML Prov:SHERRY RIZVI [facility] 01/15/25 Reported Medications Calcium Carbonate (Calcium) 600 Mg Tab, 600 MG PO DAILY, TAB 01/13/25 Hydrochlorothiazide W/Triamter (Triamterene/Hydrochloroth) 1 Cap Cap, 1 CAP PO DAILY, CAP 01/13/25 Hydrocodone-Acetaminophen (Hydrocodone Bitartrate/AC 10-325 mg) 1 Tab Tab, 1 TAB PO TID, TAB 01/13/25 Metformin Hydrochloride (Metformin Hcl) 500 Mg Tab, 1 TAB PO DAILY, #60 TAB 3 Refills 01/13/25 Atorvastatin Calcium (ATORVASTATIN CALCIUM) 20 Mg Tab, 1 TAB PO DAILY 01/12/25 Gabapentin (Gabapentin) 100 Mg Cap, 1 CAP PO BID 01/12/25 Levothyroxine Sodium (Levothyroxine Sodium) 50 Mcg Tab, 1 TAB PO DAILY 01/12/25 Verapamil HCl (Verapamil Hydrochloride E) 240 Mg Tab, 1 TAB PO DAILY 01/12/25 Information Source: Patient, Relative (Child) Mode of Arrival: Ambulatory Severity: Moderate Timing: Days Duration: Since onset Prehospital treatment: None Onset: Spontaneous Symptoms: Other (retention) History of: UTI Location: Suprapubic Modifying factors: None associated signs and symptoms: Dysuria Past Medical History PAST MEDICAL HISTORY: Arthritis, Cancer, DM, High Lipids, HTN, PUD, Thyroid Surgical History: BTL [employer] History: No Pertinent [employer] History Family History Family History: Reviewed,noncontributory to illness, Family hx of Cancer Social History Smoker: Non-Smoker, Quit Greater Than 1 Year Alcohol: Denies ETOH Use Drugs: Denies Drug Use Lives In: Home Constitutional: denies: chills, diaphoresis, fatigue, fever, malaise, sweats, weakness, others EENTM: denies: blurred vision, double vision, ear bleeding, ear discharge, ear drainage, ear pain, ear ringing, eye pain, eye redness, hearing loss, mouth pain, mouth swelling, nasal discharge, nose bleeding, nose congestion, nose pain, photophobia, tearing, throat pain, throat swelling, voice changes, others Respiratory: denies: cough, hemoptysis, orthopnea, SOB at rest, shortness of breath, SOB with excertion, stridor, wheezing, others Cardiovascular: denies: chest pain, dizzy spells, diaphoresis, Dyspnea on exertion, edema, irregular heart beat, left arm pain, lightheadedness, palpitations, PND, syncope, others Gastrointestinal: reports: constipated; denies: abdomen distended, abdominal pain, blood streaked bowels, diarrhea, dysphagia, difficulty swallowing, hematemesis, melena, nausea, poor appetite, poor fluid intake, rectal bleeding, rectal pain, vomiting, others Genitourinary: reports: burning, others (retention); denies: abnormal vagina bleeding, dyspareunia, dysuria, flank pain, frequency, hematuria, incontinence, pain, , vagina discharge, urgency Neurological: denies: dizziness, fainting, headache, left sided numbness, left sided weakness, numbness, paresthesia, pre-existing deficit, right sided numbness, right sided weakness, seizure, speech problems, tingling, tremors, weakness, others Musculoskeletal: denies: back pain, gout, joint pain, joint swelling, muscle pain, muscle stiffness, neck pain, others Integumetry: denies: bruises, change in color, change in hair/nails, dryness, laceration, lesions, lumps, rash, wounds, others Allergic/Immunocompromised: denies: Difficulty Healing, Frequent Infections, Hives, Itching, others Hematologic/Lymphatic: denies: anemia, blood clots, easy bleeding, easy bruising, swollen glands, others Endocrine: denies: excessive hunger, excessive sweating, excessive thirst, excessive urination, flushing, intolerance to cold, intolerance to heat, unexplained weight gain, unexplained weight loss, others Psychiatric: denies: anxiety, bipolar disorder, depression, hopeless, panic disorder, schizophrenia, sleepless, suicidal, others All Other Systems: Reviewed and Negative Physical Exam General Appearance: Normal HEENT: Normal ENT Inspection, Pharynx Normal, TMs Normal Neck: Full Range of Motion, Non-Tender, Normal, Normal Inspection Respiratory: Chest Non-Tender, Lungs Clear, No Accessory Muscle Use, No Respiratory Distress, Normal Breath Sounds Cardiovascular: No Edema, No JVD, No Murmur, No Gallop, Normal Peripheral P ulses, Regular Rate/Rhythm Breast Exam: Deferred Gastrointestinal: No Organomegaly, Non Tender, No Pulsatile Mass, Normal Bowel Sounds, Soft Genitalia: Deferred Pelvic: Deferred Rectal: Deferred Extremities: No calf tenderness, Normal capillary refill, Normal inspection, Normal range of motion, Non-tender, No pedal edema Musculoskeletal : Apperance: Normal Neurologic: Alert, rehabilitation medicine physician II-XII nml as Tested, No Motor Deficits, Normal Affect, Normal Mood, No Sensory Deficits Cerebellar Function: Normal Reflexes: Normal Skin: Dry, Normal Color, Warm Lymphatic: No Adenopathy Was a procedure done? Was a procedure done?: No Differential Diagnosis Kidney stone (Female): Aortic dissection, Bowel obstruction, Pyelonephritis, Renal failure, Urinary obstruction, Urolithiasis, Other X-Ray, Labs, Meds, VS Vital Signs Date Time Temp Pulse Resp B/P (MAP) Pulse Ox O2 Delivery O2 Flow Rate FiO2 02/13/25 04:34 98.4 99 16 149/71 (97) 93 98.4 02/13/25 03:29 99 16 149/71 02/13/25 03:04 98 Room Air* 0 21 02/13/25 02:59 78 17 116/64 02/13/25 02:56 98.8 78 20 116/64 (81) 98 98.8 02/13/25 01:19 97.8 96 20 131/74 98 97.8 Lab Test 02/13/25 02:33 02/13/25 01:58 Range/Units White Blood Count 5.3 4.4-10.8 10^3/uL Red Blood Count 4.08 4.0-5.20 10^6/uL Hemoglobin 11.6 L 12.2-16.2 g/dL Hematocrit 34.7 L 36.0-46.0 % Mean Corpuscular Volume 85.0 80.0-100.0 fL Mean Corpuscular Hemoglobin 28.5 28.0-32.0 pg Mean Corpuscular Hemoglobin Concent 33.5 32.0-36.0 g/dL Red Cell Distribution Width 13.9 11.8-14.3 % Platelet Count 313 140-450 10^3/uL Mean Platelet Volume 7.7 6.9-10.8 fL Neutrophils (%) (Auto) 74.4 37.0-80.0 % Lymphocytes (%) (Auto) 16.0 10.0-50.0 % Monocytes (%) (Auto) 7.3 0.0-12.0 % Eosinophils (%) (Auto) 1.4 0.0-7.0 % Basophils (%) (Auto) 0.9 0.0-2.0 % Neutrophils # (Auto) 3.9 1.6-8.6 10 ^3/uL Lymphocytes # (Auto) 0.8 0.4-5.4 10 ^3/uL Monocytes # (Auto) 0.4 0-1.3 10 ^3/uL Eosinophils # (Auto) 0.1 0-0.8 10 ^3/uL Basophils # (Auto) 0 0-0.2 10 ^3/uL Nucleated Red Blood Cells 0.0 % Sodium Level 141 136-145 mmol/L Potassium Level 3.8 3.5-5.1 mmol/L Chloride Level 102 98-107 mmol/L Carbon Dioxide Level 29 20-31 mmol/L Anion Gap 10 5-15 Blood Urea Nitrogen 8 L 9-23 mg/dL Creatinine 0.77 0.550-1.02 mg/dL Glomerular Filtration Rate Calc 79 >90 mL/min BUN/Creatinine Ratio 10.4 10.0-20.0 Serum Glucose 98 74-106 mg/dL Lactic Acid Level 1.0 0.4-2.0 mmol/L Calcium Level 10.1 8.7-10.4 mg/dL Total Bilirubin 0.5 0.2-1.0 mg/dL Aspartate Amino Transferase (AST) 22 13-40 U/L Alanine Aminotransferase (ALT) 18 7-40 U/L Alkaline Phosphatase 46 46-116 U/L Total Protein 7.5 5.7-8.2 g/dL Albumin 4.5 3.2-4.8 g/dL Lipase 34 12-53 U/L Urine Color Light-yellow Yellow Urine Clarity Turbid H Clear Urine pH 7.0 5.0-9.0 Urine Specific [place] 1.009 1.001-1.035 Urine Protein Trace H Negative Urine Ketones Negative Negative Urine Blood 2+ H Negative /uL Urine Nitrite Negative Negative Urine Bilirubin Negative Negative Urine Urobilinogen Normal Negative mg/dL Urine Leukocyte Esterase 2+ Negative /uL Urine RBC 14 0 - 4 /hpf Urine Microscopic WBC 21 H 0-5 /HPF Urine Squamous Epithelial Cells Few <5 /hpf Urine Bacteria None seen None Seen /hpf Urine Glucose Normal Normal mg/dL Current Medications Medications (Trade) Dose Ordered Sig/Lyric Route Start Time Stop Time Status Last Admin Ondansetron HCl (Zofran) 4 mg ONCE ONCE IV 02/13/25 02:00 02/13/25 02:02 DC 02/13/25 02:58 Sodium Chloride 1,000 ml @ 1,000 mls/hr Q1H ONCE IVB 02/13/25 02:00 02/13/25 02:59 DC 02/13/25 02:59 Morphine Sulfate 4 mg ONCE ONCE IV 02/13/25 02:00 02/13/25 02:02 DC 02/13/25 02:59 Time of 1ST Reevaluation: 02:20 Reevaluation 1ST: Unchanged Patient Education/Counseling: Diagnosis, Treatment, Prognosis Family Education/Counseling: Diagnosis, Treatment, Prognosis SEPSIS Sepsis Screen Date sepsis recognized/suspect: Feb 13, 2025 Time Sepsis recognized/suspect: 012 Recent Procedure: No On Antibiotic Therapy: No Respiratory Rate >20: No Heart Rate >90: No Temp<36 C (96.8 F) or >38.3 C: No SBP <90 or MAP <65 mmHG: No New Acute Mental Status Change: No Is the patient on CPAP, BIPAP,: No Physician Orders Ct Ab Pel With Iv Con Only (02/13/25 01:59) Blood Culture (02/13/25 01:59) Vital Signs Date Time Temp Pulse Resp B/P (MAP) Pulse Ox O2 Delivery O2 Flow Rate FiO2 02/13/25 04:34 98.4 99 16 149/71 (97) 93 98.4 02/13/25 03:29 99 16 149/71 02/13/25 03:04 98 Room Air* 0 21 02/13/25 02:59 78 17 116/64 02/13/25 02:56 98.8 78 20 116/64 (81) 98 98.8 02/13/25 01:19 97.8 96 20 131/74 98 97.8 Laboratory Tests Test 02/13/25 02:33 Lactic Acid Level 1.0 mmol/L (0.4-2.0) White Blood Count 5.3 10^3/uL (4.4-10.8) Medications Medications Dose Ordered Sig/Lyric Route Start Time Stop Time Status Last Admin Dose Admin Morphine Sulfate 4 mg ONCE ONCE IV 02/13/25 02:00 02/13/25 02:02 DC 02/13/25 02:59 Ondansetron HCl 4 mg ONCE ONCE IV 02/13/25 02:00 02/13/25 02:02 DC 02/13/25 02:58 Sodium Chloride 1,000 ml @ 1,000 mls/hr Q1H ONCE IVB 02/13/25 02:00 02/13/25 02:59 DC 02/13/25 02:59 Departure 1 Departure Time of Disposition: 05:06 Impression: Primary Impression: Intractable abdominal pain Additional Impressions: Urinary tract infection Obstipation Disposition: ADMITTED INPATIENT Condition: Guarded Discharged With: Self, Relative Comments Lab at CT findings reviewed. Patient has blood in her urine and signs of a urine infection with 2+ blood and 2+ leukocytes in her the urine result. Otherwise lab results are fairly unremarkable with a normal lactic acid of 1. CT of the abdomen and pelvis shows obstipation and possible fecal impaction. I ordered GoLYTELY and glycerin suppository. I ordered IV fluids and IV Rocephin antibiotics. Patient will need to be admitted for intractable abdominal pain with obstipation and possible fecal impaction. Also UTI with hematuria. Critical Care Note Critical Care Time?: No Stability Stability form required: No Heart Score Heart Score: Heart Score Response (Comments) Value History N/A 0 EKG N/A 0 Age N/A 0 Risk Factors N/A 0 Troponin N/A 0 Total 0 I personally scribed for ERROL TUCKER MD ([email or web address]) on 02/13/25 at 02:07. Electronically submitted by Annamarie Madera ([email or web address]). ERROL TUCKER MD Feb 13, 2025 02:07
[2025-02-13] MEDS: ONDANSETRON HCL 4 MG/2 ML VIAL IV ONE (02:58)
[2025-02-13] MEDS: SODIUM CHLORIDE 0.9% 1,000 ML IVB ONE (02:59)
[2025-02-13] MEDS: MORPHINE SULFATE 4 MG/ML SYR/VIAL IV ONE (02:59)
[2025-02-13 03:16] LABS: Hematocrit 34.7 % (36.0-46.0); Hemoglobin 11.6 g/dL (12.2-16.2); Mean Corpuscular Hemoglobin 28.5 pg (28.0-32.0); Mean Corpuscular Volume 85.0 fL (80.0-100.0); Nucleated Red Blood Cells % 0.0 %
[2025-02-13 03:33] LABS: Alanine Aminotransferase 18 U/L (7-40); Albumin 4.5 g/dL (3.2-4.8); Anion Gap 10 (5-15); BUN/Creatinine Ratio 10.4 (10.0-20.0); Bilirubin, Total 0.5 mg/dL (0.2-1.0); Calcium 10.1 mg/dL (8.7-10.4); Carbon Dioxide 29 mmol/L (20-31); Chloride 102 mmol/L (98-107); Glucose 98 mg/dL (74-106); Lipase 34 U/L (12-53); Potassium 3.8 mmol/L (3.5-5.1); Sodium 141 mmol/L (136-145); Total Protein 7.5 g/dL (5.7-8.2)
[2025-02-13 03:34] LABS: Alkaline Phosphatase 46 U/L (46-116); Blood Urea Nitrogen 8 mg/dL (9-23)
[2025-02-13 03:54] LABS: Urine Protein, UAD TRACE (Negative)
[2025-02-13] MEDS: IOHEXOL 300 MG/ML 100ML BOTTLE IJ ONE (04:24)
--- NOTE | 2025-02-13 04:36 | DVH ---
Exam: CT CT AB PEL WITH IV CON ONLY History: abd pain COMPARISON: None Technique: Multidetector spiral CT of the abdomen and pelvis was performed from lung bases to pubic s ymphysis. Intravenous contrast was administered during this examination. Portal venous imaging was o btained. Axial, coronal and sagittal multiplanar reformats were performed by the technologist on a [employer] workstation. Radiation Dose : 1. Abdomen/Pelvis: CTDIvol 14.96 mGy, DLP 856.38 mGy*cm. CONTRAST: Type of contrast: Omnipaque 300 Contrast injected: 100 ml Findings: Lung Bases: No acute or significant lung base finding. Moderate right basilar atelectasis. Normal hea rt size. No pleural or pericardial effusion. Liver: The liver is normal in size. No focal lesions. Normal hepatic vascular enhancement. Gallbladder and Biliary Tree: Unremarkable Spleen: Benign-appearing 7 mm hypoattenuating focus within the medial superior aspect of the spleen a djacent to focal parenchymal calcification. Pancreas: The pancreas is normal in appearance without focal lesions or abnormal enhancement. Adrenal Glands: Unremarkable Kidneys: No hydronephrosis. Bladder: Unremarkable Bowel: The stomach is grossly normal in appearance. Diverticulosis without CT evidence of acute diver ticulitis. Retained colorectal stool and rectal fecal impaction with a maximum rectal diameter of 9.5 cm. Small bowel is otherwise normal in caliber and distribution. The appendix is not visualized; how ever, no secondary findings of acute appendicitis identified. Ascites: Absent Lymphadenopathy: No mesenteric, retroperitoneal or periportal lymphadenopathy. Abdominal Wall and Mesentery: Unremarkable. Vasculature: The visualized abdominal aorta is normal in size and caliber. Atherosclerotic vascular c alcifications. Abdominal and pelvic vessels demonstrate normal enhancement. Pelvic Organs: Unremarkable Musculoskeletal: No aggressive focal bony lesions, acute fractures or dislocation. IMPRESSION: 1. No acute abdominal or pelvic finding. 2. Retained colorectal stool and rectal fecal impaction. Radiation optimization: All CT scans at this facility use at least one of these dose optimization saige hniques: automated exposure control mA and/or kV adjustment per patient size (includes targeted exam s where dose is matched to clinical indication) or iterative reconstruction.
[2025-02-13] MEDS: GOLYTELY 4L KIT PO ONE (05:30)
[2025-02-13] MEDS: GLYCERIN ADULT RECTAL SUPP PR ONE (05:30)
--- NOTE | 2025-02-13 06:56 | DVHHP2 ---
History of Present Illness Reason for Visit: Retention, dysuria, and constipation History of Present Illness Marc Issa is a 75-year-old female with past medical history of arthritis, lung cancer, diabetes, hyperlipidemia, hypertension, thyroid disease, peripheral neuropathy, chronic back pain, gastritis and PUD who presents to the ED with dysuria, retention, and burning that started yesterday. Patient also reports that the last bowel movement she had was 2 weeks ago. She also reports that she is currently on [place] for her chronic back pain. Patient also endorses that she was supposed to receive a front wheel walker but never got 1. She states that she does ambulate. She also reports that she drinks wine once every 2 months. She also endorses that she lives alone. Patient reports that she was discharged from [facility] on 01/15/25 had an endoscopy on 01/14/25 and was diagnosed with H pylori, was also to be followed up with Dr. Funes. Patient denies any recent trauma or injury, recent sick contacts, recent travels, recent ingestion of spoiled food, chest pain, shortness of breath, fever, chills, lightheadedness, weakness, or dizziness. Cardiovascular: HTN, hyperipidemia GI: Gastritis, Peptic Ulcer disease Endocrine: Diabetes Past Medical History Arthritis Lung cancer Thyroid disease Peripheral neuropathy Chronic back pain Past Surgical History: None Family History: None Smoke: No ALCOHOL: occassional Drugs: None Lives: Alone Domestic Violence: Neg Review of Systems Gastrointestinal: Constipation Genitourinary: Dysuria, Retention Allergies: Uncoded Allergies: PENICILLIN (Allergy, Unknown, 11/23/17) Exam Vital Signs Vital Signs Date Time Temp Pulse Resp B/P (MAP) Pulse Ox O2 Delivery O2 Flow Rate FiO2 02/13/25 06:00 91 20 121/63 (82) 93 02/13/25 05:42 98.3 98.3 02/13/25 03:04 Room Air* 0 21 General Appearance: Alert, Oriented X3, Cooperative, No acute distress HEENT: Atraumatic, PERRLA, EOMI, Mucous membr. moist/pink Respiratory: Clear to auscultation, Normal air movement Cardiovascular: Normal S1, Normal S2, No murmurs Abdominal: Other (Distended) Extremities: No cyanosis, No edema, Normal pulses Skin: No significant lesion Neuro: Normal gait, Normal speech, Strength at 5/5 X4 ext, Normal tone, Sensation intact Psych/Mental Status: Mental status NL, Mood NL Labs/Xrays Labs Test 02/13/25 02:33 02/13/25 01:58 Range/Units White Blood Count 5.3 4.4-10.8 10^3/uL Red Blood Count 4.08 4.0-5.20 10^6/uL Hemoglobin 11.6 L 12.2-16.2 g/dL Hematocrit 34.7 L 36.0-46.0 % Mean Corpuscular Volume 85.0 80.0-100.0 fL Mean Corpuscular Hemoglobin 28.5 28.0-32.0 pg Mean Corpuscular Hemoglobin Concent 33.5 32.0-36.0 g/dL Red Cell Distribution Width 13.9 11.8-14.3 % Platelet Count 313 140-450 10^3/uL Mean Platelet Volume 7.7 6.9-10.8 fL Neutrophils (%) (Auto) 74.4 37.0-80.0 % Lymphocytes (%) (Auto) 16.0 10.0-50.0 % Monocytes (%) (Auto) 7.3 0.0-12.0 % Eosinophils (%) (Auto) 1.4 0.0-7.0 % Basophils (%) (Auto) 0.9 0.0-2.0 % Neutrophils # (Auto) 3.9 1.6-8.6 10 ^3/uL Lymphocytes # (Auto) 0.8 0.4-5.4 10 ^3/uL Monocytes # (Auto) 0.4 0-1.3 10 ^3/uL Eosinophils # (Auto) 0.1 0-0.8 10 ^3/uL Basophils # (Auto) 0 0-0.2 10 ^3/uL Nucleated Red Blood Cells 0.0 % Sodium Level 141 136-145 mmol/L Potassium Level 3.8 3.5-5.1 mmol/L Chloride Level 102 98-107 mmol/L Carbon Dioxide Level 29 20-31 mmol/L Anion Gap 10 5-15 Blood Urea Nitrogen 8 L 9-23 mg/dL Creatinine 0.77 0.550-1.02 mg/dL Glomerular Filtration Rate Calc 79 >90 mL/min BUN/Creatinine Ratio 10.4 10.0-20.0 Serum Glucose 98 74-106 mg/dL Lactic Acid Level 1.0 0.4-2.0 mmol/L Calcium Level 10.1 8.7-10.4 mg/dL Total Bilirubin 0.5 0.2-1.0 mg/dL Aspartate Amino Transferase (AST) 22 13-40 U/L Alanine Aminotransferase (ALT) 18 7-40 U/L Alkaline Phosphatase 46 46-116 U/L Total Protein 7.5 5.7-8.2 g/dL Albumin 4.5 3.2-4.8 g/dL Lipase 34 12-53 U/L Urine Color Light-yellow Yellow Urine Clarity Turbid H Clear Urine pH 7.0 5.0-9.0 Urine Specific [place] [employer] 1.009 1.001-1.035 Urine Protein Trace H Negative Urine Ketones Negative Negative Urine Blood 2+ H Negative /uL Urine Nitrite Negative Negative Urine Bilirubin Negative Negative Urine Urobilinogen Normal Negative mg/dL Urine Leukocyte Esterase 2+ Negative /uL Urine RBC 14 0 - 4 /hpf Urine Microscopic WBC 21 H 0-5 /HPF Urine Squamous Epithelial Cells Few <5 /hpf Urine Bacteria None seen None Seen /hpf Urine Glucose Normal Normal mg/dL Exam: CT CT AB PEL WITH IV CON ONLY History: abd pain COMPARISON: None Technique: Multidetector spiral CT of the abdomen and pelvis was performed from lung bases to pubic symphysis. Intravenous contrast was administered during this examination. Portal venous imaging was obtained. Axial, coronal and sagittal multiplanar reformats were performed by the technologist on a separate workstation. Radiation Dose : 1. Abdomen/Pelvis: CTDIvol 14.96 mGy, DLP 856.38 mGy*cm. CONTRAST: Type of contrast: Omnipaque 300 Contrast injected: 100 ml Findings: Lung Bases: No acute or significant lung base finding. Moderate right basilar atelectasis. Normal heart size. No pleural or pericardial effusion. Liver: The liver is normal in size. No focal lesions. Normal hepatic vascular enhancement. Gallbladder and Biliary Tree: Unremarkable Spleen: Benign-appearing 7 mm hypoattenuating focus within the medial superior aspect of the spleen adjacent to focal parenchymal calcification. Pancreas: The pancreas is normal in appearance without focal lesions or abnormal enhancement. Adrenal Glands: Unremarkable Kidneys: No hydronephrosis. Bladder: Unremarkable Bowel: The stomach is grossly normal in appearance. Diverticulosis without CT evidence of acute diverticulitis. Retained colorectal stool and rectal fecal impaction with a maximum rectal diameter of 9.5 cm. Small bowel is otherwise normal in caliber and distribution. The appendix is not visualized; however, no secondary findings of acute appendicitis identified. Ascites: Absent Lymphadenopathy: No mesenteric, retroperitoneal or periportal lymphadenopathy. Abdominal Wall and Mesentery: Unremarkable. Vasculature: The visualized abdominal aorta is normal in size and caliber. Atherosclerotic vascular calcifications. Abdominal and pelvic vessels demonstrate normal enhancement. Pelvic Organs: Unremarkable Musculoskeletal: No aggressive focal bony lesions, acute fractures or dislocation. IMPRESSION: 1. No acute abdominal or pelvic finding. 2. Retained colorectal stool and rectal fecal impaction. SEPSIS Sepsis Screen Date sepsis recognized/suspect: Feb 13, 2025 Time Sepsis recognized/suspect: 06 Recent Procedure: No On Antibiotic Therapy: No Respiratory Rate >20: No Heart Rate >90: No Temp<36 C (96.8 F) or >38.3 C: No SBP <90 or MAP <65 mmHG: No New Acute Mental Status Change: No Is the patient on CPAP, BIPAP,: No Physician Orders Ct Ab Pel With Iv Con Only (02/13/25 01:59) Blood Culture (02/13/25 01:59) Vital Signs Date Time Temp Pulse Resp B/P (MAP) Pulse Ox O2 Delivery O2 Flow Rate FiO2 02/13/25 06:00 91 20 121/63 (82) 93 02/13/25 05:42 98.3 100 18 129/61 (83) 97 98.3 02/13/25 04:34 98.4 99 16 149/71 (97) 93 98.4 02/13/25 03:29 99 16 149/71 02/13/25 03:04 98 Room Air* 0 21 02/13/25 02:59 78 17 116/64 02/13/25 02:56 98.8 78 20 116/64 (81) 98 98.8 02/13/25 01:19 97.8 96 20 131/74 98 97.8 Laboratory Tests Test 02/13/25 02:33 Lactic Acid Level 1.0 mmol/L (0.4-2.0) White Blood Count 5.3 10^3/uL (4.4-10.8) Medications Medications Dose Ordered Sig/Lyric Route Start Time Stop Time Status Last Admin Dose Admin Glycerin 2 supp ONCE ONCE UT 02/13/25 05:15 02/13/25 05:16 DC 02/13/25 05:30 2 SUPP Morphine Sulfate 4 mg ONCE ONCE IV 02/13/25 02:00 02/13/25 02:02 DC 02/13/25 02:59 4 MG Ondansetron HCl 4 mg ONCE ONCE IV 02/13/25 02:00 02/13/25 02:02 DC 02/13/25 02:58 4 MG Polyethylene Glycol/ Electrolytes 1 kit ONCE ONCE PO 02/13/25 05:15 02/13/25 05:16 DC 02/13/25 05:30 1 KIT Sodium Chloride 1,000 ml @ 1,000 mls/hr Q1H ONCE IVB 02/13/25 02:00 02/13/25 02:59 DC 02/13/25 02:59 1,000 MLS/HR Assessment/Plan Assessment/Plan Assessment Dysuria likely due to UTI Acute urinary retention Constipation likely due to retained colorectal stool and rectal fecal impaction Alcohol use History of chronic back pain on [place] History of arthritis History of lung cancer History of diabetes History of hyperlipidemia History of hypertension History of thyroid disease History of PUD History of peripheral neuropathy History of gastritis Plan Admit to med [facility] [place] Davidson catheterization Hemoglobin A1c ISS and Accu-Cheks IV antibiotics-ceftriaxone GoLYTELY ordered in ED Bowel regimen Antiemetics Pain management NS 1 L given in ED Lactic level noted Blood cultures CT abdomen and pelvis noted UA Lipase Urine cultures Diet Home medications reconciled DVT prophylaxis-SCDs PUD prophylaxis-PPIs Discussed plan of care with patient and nurse Counseled patient on cessation of alcohol use [id number] Preventive counseling healthy eating habits, physical activity, and regular checkups Plan discussed with: Patient Date of Service: Feb 13, 2025 Billing Provider: MEAGAN DUNHAM Common Visit Codes: [id number] INP/OBS CARE (HIGH) Secondary Visit Codes: [id number] COUNSELING IND MEAGAN DUNHAM Feb 13, 2025 06:56
[2025-02-13] MEDS ORDERED: ONDANSETRON HCL 4 MG/2 ML VIAL IV PRN (07:00)
[2025-02-13] MEDS ORDERED: ACETAMINOPHEN 325 MG TAB PO PRN (07:00)
[2025-02-13] MEDS ORDERED: ENAL5TAB22 PO (07:01)
[2025-02-13] MEDS ORDERED: DEXTROSE (50%) 50ML SYRG IV PRN (07:15)
[2025-02-13] MEDS ORDERED: CALCIUM CARBONATE 600 MG PO SCH (10:00)
[2025-02-13] MEDS ORDERED: [UNRECOGNIZED DRUG - OTHER] PO SCH (10:00)
[2025-02-13] MEDS ORDERED: TRIAMTER PO SCH (10:00)
[2025-02-13] MEDS ORDERED: PATIENTS OWN MEDICATION (Enalapril Maleate 1 TAB) PO SCH (10:00)
[2025-02-13] MEDS ORDERED: VERAPAMIL HCL PO SCH (10:00)
[2025-02-13] MEDS ORDERED: HYDROCHLOROTHIAZIDE PO SCH (10:00)
[2025-02-13] MEDS: ATORVASTATIN 20 MG TAB PO SCH (10:45)
[2025-02-13] MEDS: PANTOPRAZOLE 40 MG TAB PO SCH (10:45)
[2025-02-13] MEDS: VERAPAMIL HCL 120 mg ER tab PO SCH (10:46)
[2025-02-13] MEDS: LEVOTHYROXINE SODIUM 50 MCG TAB PO SCH (10:47)
[2025-02-13] MEDS: CALCIUM CARB 500 MG CHEW TAB PO SCH (10:47)
[2025-02-13] MEDS: POLYETHYLENE GLYCOL 17 GM PWDR PO SCH (10:47)
[2025-02-13] MEDS: ENALAPRIL MALEATE 2.5 MG TAB PO SCH (10:47)
[2025-02-13] MEDS: GABAPENTIN 100 MG CAP PO SCH (10:47)
[2025-02-13] MEDS: ACCU-CHEK COMFORT CURVE STRIP VI SCH (11:03)
[2025-02-13] MEDS: InsuLIN REG 1unit/0.01ml Soln (100units/ml) SC SCH (11:03)
[2025-02-13] MEDS: SUCRALFATE 1 GM/10 ML ORAL SUSP PO SCH (11:03)
[2025-02-13] MEDS: HYDROcodone-ACET 5/325MG TAB PO PRN (11:13)
[2025-02-13] MEDS: SENNA 8.6 MG TAB PO SCH (22:40)
[2025-02-14] VITALS (7 sets, daily range): BP systolic 105–128; BP diastolic 63–69; PULSE 65–82; RESP 17–18; TEMP 97.3–98.3; O2SAT 95–100
[2025-02-14 07:51] LABS: Hematocrit 33.2 % (36.0-46.0); Hemoglobin 10.9 g/dL (12.2-16.2); Mean Corpuscular Hemoglobin 28.1 pg (28.0-32.0); Mean Corpuscular Volume 85.7 fL (80.0-100.0); Nucleated Red Blood Cells % 0.0 %
[2025-02-14 08:08] LABS: Alanine Aminotransferase 16 U/L (7-40); Albumin 3.9 g/dL (3.2-4.8); Anion Gap 11 (5-15); BUN/Creatinine Ratio 9.9 (10.0-20.0); Calcium 9.6 mg/dL (8.7-10.4); Carbon Dioxide 28 mmol/L (20-31); Chloride 105 mmol/L (98-107); Glucose 83 mg/dL (74-106); Potassium 3.7 mmol/L (3.5-5.1); Sodium 144 mmol/L (136-145); Total Protein 6.5 g/dL (5.7-8.2)
[2025-02-14 08:09] LABS: Alkaline Phosphatase 43 U/L (46-116); Bilirubin, Total 0.5 mg/dL (0.2-1.0); Blood Urea Nitrogen 7 mg/dL (9-23)
[2025-02-14] MEDS: TRIAMTERENE/HCTZ 37.5/25 MG CAP/TAB PO SCH (10:03)
--- NOTE | 2025-02-14 14:27 | DVHPN2 ---
Reviewed: Care Plan, H&P, Labs, Medications, Previous Orders, Radiology Changes from previous H/P or p: No Changes General: Per HPI Gastrointestinal: Constipation Genitourinary: Dysuria, Retention Objective Vitals Vital Signs Date Time Temp Pulse Resp B/P (MAP) Pulse Ox O2 Delivery O2 Flow Rate FiO2 02/14/25 12:36 98.3 82 17 128/66 (86) 95 98.3 02/14/25 08:00 Room Air* 0 21 Intake/Output Intake and Output 02/14/25 07:00 Intake Total 440 ml Output Total 4560 ml Balance -4120 ml Intake Oral 440 ml Output Urine Total 4560 ml # Bowel Movements 2 Medications Current Medications Medications Dose Ordered Sig/Lyric Route Start Time Stop Time Status Last Admin Dose Admin Ceftriaxone Sodium 50 ml @ 100 mls/hr DAILY@09 IV 02/13/25 07:00 02/14/25 08:50 100 MLS/HR Acetaminophen/ Hydrocodone Bitart 1 tab Q4HP PRN PO 02/13/25 07:00 02/14/25 09:38 1 TAB Ondansetron HCl 4 mg Q4HP PRN IV 02/13/25 07:00 Acetaminophen 650 mg Q6HP PRN PO 02/13/25 07:00 Atorvastatin Calcium 20 mg DAILY PO 02/13/25 10:00 02/14/25 08:44 20 MG Gabapentin 100 mg BID PO 02/13/25 10:00 02/14/25 08:45 100 MG Levothyroxine Sodium 50 mcg DAILY PO 02/13/25 10:00 02/14/25 08:45 50 MCG Pantoprazole Sodium 40 mg BID PO 02/13/25 10:00 02/14/25 08:45 40 MG Sucralfate 1 gm QID@0600,1130,1700,2200 PO 02/13/25 11:30 02/14/25 11:14 1 GM Patient Own Medication 600 mg DAILY PO 02/13/25 10:00 UNV Patient Own Medication 1 cap DAILY PO 02/13/25 10:00 UNV Patient Own Medication 1 tab DAILY PO 02/13/25 10:00 UNV Patient Own Medication 1 tab DAILY PO 02/13/25 10:00 UNV Polyethylene Glycol 17 gm DAILY PO 02/13/25 10:00 02/14/25 08:49 17 GM Sennosides 8.6 mg HS PO 02/13/25 22:00 02/13/25 22:40 8.6 MG Diagnostic Test (Pha) 1 strip ACHS 02/13/25 11:30 02/14/25 11:14 1 STRIP Insulin Human Regular ACHS SC 02/13/25 11:30 Dextrose 50 ml UD PRN IV 02/13/25 07:15 Enalapril Maleate 5 mg DAILY PO 02/13/25 10:00 02/14/25 10:03 5 MG Verapamil HCl 240 mg DAILY PO 02/13/25 10:00 02/14/25 08:49 240 MG Calcium Carbonate 500 mg DAILY PO 02/13/25 10:00 02/14/25 08:45 500 MG Triamterene/HCTZ 1 cap DAILY PO 02/14/25 10:00 02/14/25 10:03 1 CAP Laboratory Results Laboratory Tests 02/14/25 06:01 Chemistry Test 02/14/25 06:01 Albumin 3.9 g/dL (3.2-4.8) Calcium Level 9.6 mg/dL (8.7-10.4) Total Protein 6.5 g/dL (5.7-8.2) LFT Test 02/14/25 06:01 Alanine Aminotransferase (ALT) 16 U/L (7-40) Alkaline Phosphatase 43 U/L (46-116) L Aspartate Amino Transferase (AST) 19 U/L (13-40) Total Bilirubin 0.5 mg/dL (0.2-1.0) Urinalysis Test 02/13/25 01:58 Urine Color Light-yellow (Yellow) Urine Clarity Turbid (Clear) H Urine pH 7.0 (5.0-9.0) Urine Specific [place] 1.009 (1.001-1.035) Urine Protein Trace (Negative) H Urine Ketones Negative (Negative) Urine Blood 2+ /uL (Negative) H Urine Nitrite Negative (Negative) Urine Bilirubin Negative (Negative) Urine Urobilinogen Normal mg/dL (Negative) Urine Leukocyte Esterase 2+ /uL (Negative) Urine RBC 14 /hpf (0 - 4) Urine Microscopic WBC 21 /HPF (0-5) H Urine Squamous Epithelial Cells Few /hpf (<5) Urine Bacteria None seen /hpf (None Seen) Urine Glucose Normal mg/dL (Normal) Microbiology Microbiology Date/Time Source Procedure Growth Status 02/13/25 02:23 Blood Blood Culture - Preliminary NO GROWTH AFTER 24 HOURS OF INCUBATION. Resulted 02/13/25 01:58 Voided Urine Urine Culture - Preliminary Resulted Assessment/Plan Assessment/Plan Marc Issa is a 75-year-old female with past medical history of arthritis, lung cancer, diabetes, hyperlipidemia, hypertension, thyroid disease, peripheral neuropathy, chronic back pain, gastritis and PUD who presents to the ED with dysuria, retention, and burning that started yesterday. Patient also reports that the last bowel movement she had was 2 weeks ago. She also reports that she is currently on [place] for her chronic back pain. Patient also endorses that she was supposed to receive a front wheel walker but never got 1. She states that she does ambulate. She also reports that she drinks wine once every 2 months. She also endorses that she lives alone. Patient reports that she was discharged from [facility] on 01/15/25 had an endoscopy on 01/14/25 and was diagnosed with H pylori, was also to be followed up with Dr. Funes. Patient denies any recent trauma or injury, recent sick contacts, recent travels, recent ingestion of spoiled food, chest pain, shortness of breath, fever, chills, lightheadedness, weakness, or dizziness. Dysuria likely due to UTI Acute urinary retention Constipation likely due to retained colorectal stool and rectal fecal impaction Alcohol use History of chronic back pain on [place] History of arthritis History of lung cancer History of diabetes History of hyperlipidemia History of hypertension History of thyroid disease History of PUD History of peripheral neuropathy History of gastritis 02/14/2025: pending urine Cx. continue with IV aBx Plan discussed with: Patient Date of Service: Feb 14, 2025 Billing Provider: SANGITA NIETO DO Common Visit Codes: [id number] INP/OBS CARE(HIGH) SANGITA NIETO DO Feb 14, 2025 14:27
[2025-02-14] MEDS: LACTULOSE 20Gm/30ML SOLN PO SCH (21:02)
[2025-02-15] VITALS (8 sets, daily range): BP systolic 102–136; BP diastolic 55–82; PULSE 62–96; RESP 17–18; TEMP 97.2–98.2; O2SAT 95–99
--- NOTE | 2025-02-15 13:50 | DVHPN2 ---
Reviewed: Care Plan, H&P, Labs, Medications, Previous Orders, Radiology Changes from previous H/P or p: No Changes General: Per HPI Gastrointestinal: Constipation Genitourinary: Dysuria, Retention Objective Vitals Vital Signs Date Time Temp Pulse Resp B/P (MAP) Pulse Ox O2 Delivery O2 Flow Rate FiO2 02/15/25 13:00 97.6 62 17 136/82 (100) 97 97.6 02/14/25 20:00 Room Air* 0 21 Intake/Output Intake and Output 02/15/25 07:00 Intake Total 1690 ml Output Total 3050 ml Balance -1360 ml Intake Oral 1640 ml IV Total 50 ml Output Urine Total 3050 ml # Bowel Movements 4 General Appearance: Alert, Oriented X3, Cooperative Lungs: Clear to auscultation Cardiovascular: Normal S1, Normal S2 Abdomen: Normal bowel sounds Neuro: Normal gait Medications Current Medications Medications Dose Ordered Sig/Lyric Route Start Time Stop Time Status Last Admin Dose Admin Ceftriaxone Sodium 50 ml @ 100 mls/hr DAILY@09 IV 02/13/25 07:00 02/15/25 09:11 100 MLS/HR Acetaminophen/ Hydrocodone Bitart 1 tab Q4HP PRN PO 02/13/25 07:00 02/15/25 06:06 1 TAB Ondansetron HCl 4 mg Q4HP PRN IV 02/13/25 07:00 Acetaminophen 650 mg Q6HP PRN PO 02/13/25 07:00 Atorvastatin Calcium 20 mg DAILY PO 02/13/25 10:00 02/15/25 09:13 20 MG Gabapentin 100 mg BID PO 02/13/25 10:00 02/15/25 09:12 100 MG Levothyroxine Sodium 50 mcg DAILY PO 02/13/25 10:00 02/15/25 09:14 50 MCG Pantoprazole Sodium 40 mg BID PO 02/13/25 10:00 02/15/25 09:13 40 MG Sucralfate 1 gm QID@0600,1130,1700,2200 PO 02/13/25 11:30 02/15/25 11:44 1 GM Patient Own Medication 600 mg DAILY PO 02/13/25 10:00 UNV Patient Own Medication 1 cap DAILY PO 02/13/25 10:00 UNV Patient Own Medication 1 tab DAILY PO 02/13/25 10:00 UNV Patient Own Medication 1 tab DAILY PO 02/13/25 10:00 UNV Polyethylene Glycol 17 gm DAILY PO 02/13/25 10:00 02/15/25 09:12 17 GM Sennosides 8.6 mg HS PO 02/13/25 22:00 02/14/25 21:01 8.6 MG Diagnostic Test (Pha) 1 strip ACHS 02/13/25 11:30 02/15/25 11:48 1 STRIP Insulin Human Regular ACHS SC 02/13/25 11:30 Dextrose 50 ml UD PRN IV 02/13/25 07:15 Enalapril Maleate 5 mg DAILY PO 02/13/25 10:00 02/15/25 09:17 5 MG Verapamil HCl 240 mg DAILY PO 02/13/25 10:00 02/15/25 09:15 240 MG Calcium Carbonate 500 mg DAILY PO 02/13/25 10:00 02/15/25 09:12 500 MG Triamterene/HCTZ 1 cap DAILY PO 02/14/25 10:00 02/15/25 09:16 1 CAP Lactulose 30 ml BID PO 02/14/25 22:00 02/15/25 09:11 30 ML Laboratory Results Laboratory Tests 02/14/25 06:01 Urinalysis Test 02/13/25 01:58 Urine Color Light-yellow (Yellow) Urine Clarity Turbid (Clear) H Urine pH 7.0 (5.0-9.0) Urine Specific [place] 1.009 (1.001-1.035) Urine Protein Trace (Negative) H Urine Ketones Negative (Negative) Urine Blood 2+ /uL (Negative) H Urine Nitrite Negative (Negative) Urine Bilirubin Negative (Negative) Urine Urobilinogen Normal mg/dL (Negative) Urine Leukocyte Esterase 2+ /uL (Negative) Urine RBC 14 /hpf (0 - 4) Urine Microscopic WBC 21 /HPF (0-5) H Urine Squamous Epithelial Cells Few /hpf (<5) Urine Bacteria None seen /hpf (None Seen) Urine Glucose Normal mg/dL (Normal) Microbiology Microbiology Date/Time Source Procedure Growth Status 02/13/25 02:23 Blood Blood Culture - Preliminary NO GROWTH AFTER 48 HOURS OF INCUBATION. Resulted 02/13/25 01:58 Voided Urine Urine Culture - Final Complete Labs and/or images reviewed: Labs reviewed by me, Image(s) reviewed by me Assessment/Plan Assessment/Plan IssaMarc is a 75-year-old female with past medical history of arthritis, lung cancer, diabetes, hyperlipidemia, hypertension, thyroid disease, peripheral neuropathy, chronic back pain, gastritis and PUD who presents to the ED with dysuria, retention, and burning that started yesterday. Patient also reports that the last bowel movement she had was 2 weeks ago. She also reports that she is currently on [place] for her chronic back pain. Patient also endorses that she was supposed to receive a front wheel walker but never got 1. She states that she does ambulate. She also reports that she drinks wine once every 2 months. She also endorses that she lives alone. Patient reports that she was discharged from [facility] on 01/15/25 had an endoscopy on 01/14/25 and was diagnosed with H pylori, was also to be followed up with Dr. Funes. Patient denies any recent trauma or injury, recent sick contacts, recent travels, recent ingestion of spoiled food, chest pain, shortness of breath, fever, chills, lightheadedness, weakness, or dizziness. Dysuria likely due to UTI Acute urinary retention Constipation likely due to retained colorectal stool and rectal fecal impaction Alcohol use History of chronic back pain on [place] History of arthritis History of lung cancer History of diabetes History of hyperlipidemia History of hypertension History of thyroid disease History of PUD History of peripheral neuropathy History of gastritis 02/14/2025: pending urine Cx. continue with IV aBx 02/15/2025: pt complained of constipation and the urge to defecate but unable to do so consult GI also, pt has hx of H pylori Plan discussed with: Patient My Orders Orders - SANGITA NIETO DO Procedure Category Date Status Time Lactulose Oral PHA 02/14/25 In Process 22:00 Communication Order ORDERS 02/14/25 Transmitted 16:30 * Gi Dvh Rn Tele CONS 02/14/25 Transmitted 17:13 Date of Service: Feb 15, 2025 Billing Provider: SANGITA NIETO DO Common Visit Codes: [id number] INP/OBS CARE(HIGH) SANGITA NIETO DO Feb 15, 2025 13:50
--- NOTE | 2025-02-15 18:51 | DVHINCON2 ---
Date of service: Feb 15, 2025 History of Present Illness Per HPI - "75-year-old female with past medical history of arthritis, lung cancer, diabetes, hyperlipidemia, hypertension, thyroid disease, peripheral neuropathy, chronic back pain, gastritis and PUD who presents to the ED with dysuria, retention, and burning that started yesterday. Patient also reports that the last bowel movement she had was 2 weeks ago. She also reports that she is currently on [place] for her chronic back pain. Patient also endorses that she was supposed to receive a front wheel walker but never got 1. She states that she does ambulate. She also reports that she drinks wine once every 2 months. She also endorses that she lives alone. Patient reports that she was discharged from [facility] on 01/15/25 had an endoscopy on 01/14/25 and was diagnosed with H pylori, was also to be followed up with Dr. Funes. Patient denies any recent trauma or injury, recent sick contacts, recent travel s, recent ingestion of spoiled food, chest pain, shortness of breath, fever, chills, lightheadedness, weakness, or dizziness." GI service consulted for constipation and Hx of H pylori infection. She reports having no BM for 2 weeks. She takes [place] daily, has chronic constipation. Was given stool softners, but not helpful. She does not clearly recall on H pylori treatment and confirming eradication. She c/o urinary retention, has ramesh catheter Past Medical History Reviewed Past Surgical History Reviewed Family History: Cerebrovascular accident (CVA) G8 MOTHER Diabetes mellitus G8 MOTHER FH: cancer G8 MOTHER G8 FATHER Hypertension G8 MOTHER Allergies: Uncoded Allergies: PENICILLIN (Allergy, Unknown, 11/23/17) Home Meds Active Scripts Pantoprazole Sodium Sesquihydr (Protonix) 40 Mg Tab, 40 MG PO BID for 30 Days, #60 TAB 2 Refills Prov:CARLOSNALDO RESIDENT 02/05/25 Clarithromycin (Clarithromycin) 500 Mg Tab, 1 TAB PO BID for 14 Days, #28 TAB Prov:BREANNANALDO RESIDENT 02/05/25 Amoxicillin Trihydrate (Amoxicillin) 500 Mg Tab, 2 TAB PO BID for 14 Days, #56 TAB Prov:CARLOS,NALDO RESIDENT 02/05/25 Cephalexin (KEFLEX CAPSULE) 250 Mg Cp, 1 CAP PO QID for 3 Days, #28 CAP Prov:SHERRY RIZVI RESIDENT 01/15/25 Pantoprazole Sodium Sesquihydr (Pantoprazole Sodium) 40 Mg Tab, 40 MG PO BID for 30 Days, #60 TAB Prov:SHERRY RIZVI RESIDENT 01/15/25 Sucralfate (CARAFATE SUSP) 1 Gm/10 Ml Ss, 1 GM PO QID@0600,1130,1700,2200 for 30 Days, #30 ML Prov:SHERRY RIZVI RESIDENT 01/15/25 Reported Medications Enalapril Maleate (Enalapril Maleate) 5 Mg Tab, 1 TAB PO DAILY 02/13/25 Calcium Carbonate (Calcium) 600 Mg Tab, 600 MG PO DAILY, TAB 01/13/25 Hydrochlorothiazide W/Triamter (Triamterene/Hydrochloroth) 1 Cap Cap, 1 CAP PO DAILY, CAP 01/13/25 Hydrocodone-Acetaminophen (Hydrocodone Bitartrate/AC 10-325 mg) 1 Tab Tab, 1 TAB PO TID, TAB 01/13/25 Metformin Hydrochloride (Metformin Hcl) 500 Mg Tab, 1 TAB PO DAILY, #60 TAB 3 Refills 01/13/25 Atorvastatin Calcium (ATORVASTATIN CALCIUM) 20 Mg Tab, 1 TAB PO DAILY 01/12/25 Gabapentin (Gabapentin) 100 Mg Cap, 1 CAP PO BID 01/12/25 Levothyroxine Sodium (Levothyroxine Sodium) 50 Mcg Tab, 1 TAB PO DAILY 01/12/25 Verapamil HCl (Verapamil Hydrochloride E) 240 Mg Tab, 1 TAB PO DAILY 01/12/25 Current Medications Current Medications Medications (Trade) Dose Ordered Sig/Lyric Route PRN Reason Start Time Stop Time Status Last Admin Lactulose 30 ml BID PO 02/14/25 22:00 02/15/25 09:11 Review of Systems 14 point ROS negative except mentioned above Vital Signs Vital Signs Date Time Temp Pulse Resp B/P (MAP) Pulse Ox O2 Delivery O2 Flow Rate FiO2 02/15/25 17:00 98.2 70 17 115/81 (92) 99 98.2 02/15/25 08:00 Room Air* 0 21 Physical Exam GE: in no acute distress CVS: S1S2+ Lungs: clear Abdomen: soft, distended, non-tender, BS+ Labs/Diagnostic Data Labs Test 02/15/25 11:46 02/14/25 06:01 02/13/25 02:33 02/13/25 01:58 Range/Units POC Glucose 95 70-106 mg/dl White Blood Count 4.3 L 4.4-10.8 10^3/uL Red Blood Count 3.88 L 4.0-5.20 10^6/uL Hemoglobin 10.9 L 12.2-16.2 g/dL Hematocrit 33.2 L 36.0-46.0 % Mean Corpuscular Volume 85.7 80.0-100.0 fL Mean Corpuscular Hemoglobin 28.1 28.0-32.0 pg Mean Corpuscular Hemoglobin Concent 32.8 32.0-36.0 g/dL Red Cell Distribution Width 14.0 11.8-14.3 % Platelet Count 287 140-450 10^3/uL Mean Platelet Volume 7.7 6.9-10.8 fL Neutrophils (%) (Auto) 62.5 37.0-80.0 % Lymphocytes (%) (Auto) 26.0 10.0-50.0 % Monocytes (%) (Auto) 8.5 0.0-12.0 % Eosinophils (%) (Auto) 2.7 0.0-7.0 % Basophils (%) (Auto) 0.3 0.0-2.0 % Neutrophils # (Auto) 2.7 1.6-8.6 10 ^3/uL Lymphocytes # (Auto) 1.1 0.4-5.4 10 ^3/uL Monocytes # (Auto) 0.4 0-1.3 10 ^3/uL Eosinophils # (Auto) 0.1 0-0.8 10 ^3/uL Basophils # (Auto) 0 0-0.2 10 ^3/uL Nucleated Red Blood Cells 0.0 % Sodium Level 144 136-145 mmol/L Potassium Level 3.7 3.5-5.1 mmol/L Chloride Level 105 98-107 mmol/L Carbon Dioxide Level 28 20-31 mmol/L Anion Gap 11 5-15 Blood Urea Nitrogen 7 L 9-23 mg/dL Creatinine 0.71 0.550-1.02 mg/dL Glomerular Filtration Rate Calc 88 >90 mL/min BUN/Creatinine Ratio 9.9 L 10.0-20.0 Serum Glucose 83 74-106 mg/dL Calcium Level 9.6 8.7-10.4 mg/dL Total Bilirubin 0.5 0.2-1.0 mg/dL Aspartate Amino Transferase (AST) 19 13-40 U/L Alanine Aminotransferase (ALT) 16 7-40 U/L Alkaline Phosphatase 43 L 46-116 U/L Total Protein 6.5 5.7-8.2 g/dL Albumin 3.9 3.2-4.8 g/dL Hemoglobin A1c 5.3 <5.7 % A1C Lactic Acid Level 1.0 0.4-2.0 mmol/L Lipase 34 12-53 U/L Urine Color Light-yellow Yellow Urine Clarity Turbid H Clear Urine pH 7.0 5.0-9.0 Urine Specific [place] 1.009 1.001-1.035 Urine Protein Trace H Negative Urine Ketones Negative Negative Urine Blood 2+ H Negative /uL Urine Nitrite Negative Negative Urine Bilirubin Negative Negative Urine Urobilinogen Normal Negative mg/dL Urine Leukocyte Esterase 2+ Negative /uL Urine RBC 14 0 - 4 /hpf Urine Microscopic WBC 21 H 0-5 /HPF Urine Squamous Epithelial Cells Few <5 /hpf Urine Bacteria None seen None Seen /hpf Urine Glucose Normal Normal mg/dL Microbiology Date/Time Source Procedure Growth Status 02/13/25 02:23 Blood Blood Culture - Preliminary NO GROWTH AFTER 48 HOURS OF INCUBATION. Resulted 02/13/25 01:58 Voided Urine Urine Culture - Final Complete Assessment #Severe constipation/Obstipation #Hx of H pylori infection #Anemia wo overt GI bleed #Urinary retention -High fiber diet. Avoid constipation strictly -Metamucil/psyllium fiber supplementation daily -On Lactulose 30 ml BID. Monitor clinical response. Regular bowel regimen recommended, due to chronic narcotic use -Fleet enema x2, BID tomorrow. Discussed with RN. Increase lactulose to TID, only if no good BMs with fleet enema and lactulose BID. -Check H pylori stool Antigen to confirm persistent infection. Bismuth based quadruple therapy recommended if positive and confirm eradcation. Can be done out pt as well, once her clinical condition stabilizes -Care plan discussed with pt and RN in detail Thank you for the consult. Plan discussed with: Patient, Other ABDIRIZAK MODI MD Feb 15, 2025 18:51
[2025-02-16] VITALS (8 sets, daily range): BP systolic 100–133; BP diastolic 60–81; PULSE 60–78; RESP 17–18; TEMP 98–98.7; O2SAT 96–99
[2025-02-16] MEDS ORDERED: FLEET ENEMA(ADULT) 135 ML PR ONE ×2 (00:30)
[2025-02-16] MEDS ORDERED: FLEET ENEMA(ADULT) 135 ML PR SCH ×2 (09:00→17:00)
[2025-02-16] MEDS: FLEET ENEMA(ADULT) 135 ML PR ONE ×2 (10:49→17:59)
[2025-02-16] MEDS: LACTULOSE 20Gm/30ML SOLN PO SCH (14:02)
[2025-02-16] MEDS ORDERED: LEVO500T91 PO (15:05)
--- NOTE | 2025-02-16 19:51 | DVHPN2 ---
Progress Note - Dictate Date Seen: Feb 16, 2025 Medical Necessity Reason Pt with a Central, PICC or Fol: No Subjective She had BMs after enema, large per pt. No GIB. Able to urinate once had BMs vital signs Vital Sign Date Time Temp Pulse Resp B/P (MAP) Pulse Ox O2 Delivery O2 Flow Rate FiO2 02/16/25 16:44 98.3 75 18 108/67 (81) 98 98.3 02/16/25 08:00 Room Air* 0 21 Total Intake and Output 02/15/25 02/15/25 02/16/25 15:00 23:00 07:00 Intake Total 500 ml 1250 ml 650 ml Output Total 750 ml 1700 ml Balance 500 ml 500 ml -1050 ml medications Current Medications Medications Dose Ordered Sig/Lyric Route Start Time Stop Time Status Last Admin Dose Admin Ceftriaxone Sodium 50 ml @ 100 mls/hr DAILY@09 IV 02/13/25 07:00 02/16/25 09:00 100 MLS/HR Acetaminophen/ Hydrocodone Bitart 1 tab Q4HP PRN PO 02/13/25 07:00 02/16/25 17:59 1 TAB Ondansetron HCl 4 mg Q4HP PRN IV 02/13/25 07:00 Acetaminophen 650 mg Q6HP PRN PO 02/13/25 07:00 Atorvastatin Calcium 20 mg DAILY PO 02/13/25 10:00 02/16/25 09:01 20 MG Gabapentin 100 mg BID PO 02/13/25 10:00 02/16/25 09:00 100 MG Levothyroxine Sodium 50 mcg DAILY PO 02/13/25 10:00 02/16/25 09:02 50 MCG Pantoprazole Sodium 40 mg BID PO 02/13/25 10:00 02/16/25 09:01 40 MG Sucralfate 1 gm QID@0600,1130,1700,2200 PO 02/13/25 11:30 02/16/25 17:47 1 GM Patient Own Medication 600 mg DAILY PO 02/13/25 10:00 UNV Patient Own Medication 1 cap DAILY PO 02/13/25 10:00 UNV Patient Own Medication 1 tab DAILY PO 02/13/25 10:00 UNV Patient Own Medication 1 tab DAILY PO 02/13/25 10:00 UNV Polyethylene Glycol 17 gm DAILY PO 02/13/25 10:00 02/16/25 09:01 17 GM Sennosides 8.6 mg HS PO 02/13/25 22:00 02/15/25 21:38 8.6 MG Diagnostic Test (Pha) 1 strip ACHS 02/13/25 11:30 02/16/25 17:00 1 STRIP Insulin Human Regular ACHS SC 02/13/25 11:30 Dextrose 50 ml UD PRN IV 02/13/25 07:15 Enalapril Maleate 5 mg DAILY PO 02/13/25 10:00 02/16/25 12:17 5 MG Verapamil HCl 240 mg DAILY PO 02/13/25 10:00 02/16/25 09:01 240 MG Calcium Carbonate 500 mg DAILY PO 02/13/25 10:00 02/16/25 09:00 500 MG Triamterene/HCTZ 1 cap DAILY PO 02/14/25 10:00 02/16/25 12:16 1 CAP Sodium Biphosphate/ Sodium Phosphate 135 ml ONCE AL 02/16/25 09:00 UNV Sodium Biphosphate/ Sodium Phosphate 135 ml ONCE AL 02/16/25 17:00 UNV Lactulose 30 ml TID PO 02/16/25 14:00 02/16/25 14:02 30 ML objective GE: in no acute distress CVS: S1S2+ Lungs: clear Abdomen: soft, less distended, nontender, BS+ laboratory and microbiology Laboratory Tests 02/14/25 06:01 Test 02/14/25 06:01 Range/Units Serum Glucose 83 74-106 mg/dL Assessment/Plan #Severe constipation/Obstipation #Hx of H pylori infection #Anemia wo overt GI bleed #Urinary retention, improveing -High fiber diet. Avoid constipation strictly -Metamucil/psyllium fiber supplementation daily -On Lactulose 30 ml BID. Monitor clinical response. Regular bowel regimen recommended, due to chronic narcotic use -Fleet enema x2, BID today. Discussed with RN. Increase lactulose to TID, only if no good BMs with fleet enema and lactulose BID. -Check H pylori stool Antigen to confirm persistent infection. Bismuth based quadruple therapy recommended if positive and confirm eradication. Can be done out pt as well, once her clinical condition stabilizes -Care plan discussed with pt and RN in detail Thank you for allowing me to participate in the care of this patient Plan discussed with: Patient ABDIRIZAK MODI MD Feb 16, 2025 19:51
[2025-02-17 05:00] VITALS: BP 104/60; PULSE 69; RESP 17; TEMP 97.5; O2SAT 97
[2025-02-17 08:00] VITALS: PULSE 80; RESP 17; O2SAT 94
[2025-02-17 08:44] VITALS: BP 95/65; PULSE 104; RESP 17; TEMP 96.9; O2SAT 94
--- NOTE | 2025-02-17 11:29 | DVHPN2 ---
Reviewed: Care Plan, H&P, Labs, Medications, Previous Orders, Radiology Changes from previous H/P or p: No Changes General: Per HPI Gastrointestinal: Constipation Genitourinary: Dysuria, Retention Objective Vitals Vital Signs Date Time Temp Pulse Resp B/P (MAP) Pulse Ox O2 Delivery O2 Flow Rate FiO2 02/17/25 10:28 75 105/56 02/17/25 08:44 96.9 17 94 96.9 02/17/25 08:00 Room Air* 0 21 Intake/Output Intake and Output 02/17/25 07:00 Intake Total 1680 ml Output Total 953 ml Balance 727 ml Intake Oral 1630 ml IV Total 50 ml Output Urine Total 950 ml Stool Total 3 ml # Voids 3 # Bowel Movements 1 General Appearance: Alert, Oriented X3, Cooperative Lungs: Clear to auscultation Cardiovascular: Normal S1, Normal S2 Abdomen: Normal bowel sounds Neuro: Normal gait Medications Current Medications Medications Dose Ordered Sig/Lyric Route Start Time Stop Time Status Last Admin Dose Admin Ceftriaxone Sodium 50 ml @ 100 mls/hr DAILY@09 IV 02/13/25 07:00 02/17/25 09:03 100 MLS/HR Acetaminophen/ Hydrocodone Bitart 1 tab Q4HP PRN PO 02/13/25 07:00 02/16/25 17:59 1 TAB Ondansetron HCl 4 mg Q4HP PRN IV 02/13/25 07:00 Acetaminophen 650 mg Q6HP PRN PO 02/13/25 07:00 Atorvastatin Calcium 20 mg DAILY PO 02/13/25 10:00 02/17/25 10:15 20 MG Gabapentin 100 mg BID PO 02/13/25 10:00 02/17/25 10:20 100 MG Levothyroxine Sodium 50 mcg DAILY PO 02/13/25 10:00 02/17/25 10:20 50 MCG Pantoprazole Sodium 40 mg BID PO 02/13/25 10:00 02/17/25 10:20 40 MG Sucralfate 1 gm QID@0600,1130,1700,2200 PO 02/13/25 11:30 02/17/25 05:57 1 GM Patient Own Medication 600 mg DAILY PO 02/13/25 10:00 UNV Patient Own Medication 1 cap DAILY PO 02/13/25 10:00 UNV Patient Own Medication 1 tab DAILY PO 02/13/25 10:00 UNV Patient Own Medication 1 tab DAILY PO 02/13/25 10:00 UNV Polyethylene Glycol 17 gm DAILY PO 02/13/25 10:00 02/17/25 10:15 17 GM Sennosides 8.6 mg HS PO 02/13/25 22:00 02/16/25 22:04 8.6 MG Diagnostic Test (Pha) 1 strip ACHS 02/13/25 11:30 02/17/25 06:25 1 STRIP Insulin Human Regular ACHS SC 02/13/25 11:30 Dextrose 50 ml UD PRN IV 02/13/25 07:15 Enalapril Maleate 5 mg DAILY PO 02/13/25 10:00 02/16/25 12:17 5 MG Verapamil HCl 240 mg DAILY PO 02/13/25 10:00 02/17/25 10:28 240 MG Calcium Carbonate 500 mg DAILY PO 02/13/25 10:00 02/17/25 10:20 500 MG Triamterene/HCTZ 1 cap DAILY PO 02/14/25 10:00 02/16/25 12:16 1 CAP Sodium Biphosphate/ Sodium Phosphate 135 ml ONCE ME 02/16/25 09:00 UNV Sodium Biphosphate/ Sodium Phosphate 135 ml ONCE ME 02/16/25 17:00 UNV Lactulose 30 ml TID PO 02/16/25 14:00 02/17/25 05:57 30 ML Laboratory Results Laboratory Tests 02/14/25 06:01 Urinalysis Test 02/13/25 01:58 Urine Color Light-yellow (Yellow) Urine Clarity Turbid (Clear) H Urine pH 7.0 (5.0-9.0) Urine Specific [place] 1.009 (1.001-1.035) Urine Protein Trace (Negative) H Urine Ketones Negative (Negative) Urine Blood 2+ /uL (Negative) H Urine Nitrite Negative (Negative) Urine Bilirubin Negative (Negative) Urine Urobilinogen Normal mg/dL (Negative) Urine Leukocyte Esterase 2+ /uL (Negative) Urine RBC 14 /hpf (0 - 4) Urine Microscopic WBC 21 /HPF (0-5) H Urine Squamous Epithelial Cells Few /hpf (<5) Urine Bacteria None seen /hpf (None Seen) Urine Glucose Normal mg/dL (Normal) Microbiology Microbiology Date/Time Source Procedure Growth Status 02/13/25 02:23 Blood Blood Culture - Preliminary NO GROWTH AFTER 72 HOURS OF INCUBATION. Resulted 02/13/25 01:58 Voided Urine Urine Culture - Final Complete Labs and/or images reviewed: Labs reviewed by me, Image(s) reviewed by me Assessment/Plan Assessment/Plan Marc Issa is a 75-year-old female with past medical history of arthritis, lung cancer, diabetes, hyperlipidemia, hypertension, thyroid disease, peripheral neuropathy, chronic back pain, gastritis and PUD who presents to the ED with dysuria, retention, and burning that started yesterday. Patient also reports that the last bowel movement she had was 2 weeks ago. She also reports that she is currently on [place] for her chronic back pain. Patient also endorses that she was supposed to receive a front wheel walker but never got 1. She states that she does ambulate. She also reports that she drinks wine once every 2 months. She also endorses that she lives alone. Patient reports that she was discharged from [facility] on 01/15/25 had an endoscopy on 01/14/25 and was diagnosed with H pylori, was also to be followed up with Dr. Funes. Patient denies any recent trauma or injury, recent sick contacts, recent travels, recent ingestion of spoiled food, chest pain, shortness of breath, fever, chills, lightheadedness, weakness, or dizziness. Dysuria likely due to UTI Acute urinary retention Constipation likely due to retained colorectal stool and rectal fecal impaction Alcohol use History of chronic back pain on [place] History of arthritis History of lung cancer DM type II hyperlipidemia hypertension History of thyroid disease History of PUD History of peripheral neuropathy History of gastritis constipation recent infection of H pyloric GERD 02/14/2025: pending urine Cx. continue with IV aBx 02/15/2025: pt complained of constipation and the urge to defecate but unable to do so consult GI also, pt has hx of H pylori 02/16/2025: pending evaluation by GI Plan discussed with: Patient Date of Service: Feb 16, 2025 Billing Provider: SANGITA NIETO DO Common Visit Codes: [id number] INP/OBS CARE(HIGH) SANGITA NIETO DO Feb 17, 2025 11:29
[2025-02-17] MEDS ORDERED: MET500T PO (11:32)
[2025-02-17] MEDS ORDERED: CLAR1TAB21 PO (11:32)
--- NOTE | 2025-02-17 11:34 | DVHDS2 ---
Discharge Summary Date of Admission Feb 13, 2025 at 06:58 Date of Discharge: Feb 17, 2025 Labs/Diagnostic Data: Laboratory Results Test 02/17/25 06:00 02/14/25 06:01 02/13/25 02:33 02/13/25 01:58 POC Glucose 92 mg/dl (70-106) White Blood Count 4.3 10^3/uL (4.4-10.8) Red Blood Count 3.88 10^6/uL (4.0-5.20) Hemoglobin 10.9 g/dL (12.2-16.2) Hematocrit 33.2 % (36.0-46.0) Mean Corpuscular Volume 85.7 fL (80.0-100.0) Mean Corpuscular Hemoglobin 28.1 pg (28.0-32.0) Mean Corpuscular Hemoglobin Concent 32.8 g/dL (32.0-36.0) Red Cell Distribution Width 14.0 % (11.8-14.3) Platelet Count 287 10^3/uL (140-450) Mean Platelet Volume 7.7 fL (6.9-10.8) Neutrophils (%) (Auto) 62.5 % (37.0-80.0) Lymphocytes (%) (Auto) 26.0 % (10.0-50.0) Monocytes (%) (Auto) 8.5 % (0.0-12.0) Eosinophils (%) (Auto) 2.7 % (0.0-7.0) Basophils (%) (Auto) 0.3 % (0.0-2.0) Neutrophils # (Auto) 2.7 10 ^3/uL (1.6-8.6) Lymphocytes # (Auto) 1.1 10 ^3/uL (0.4-5.4) Monocytes # (Auto) 0.4 10 ^3/uL (0-1.3) Eosinophils # (Auto) 0.1 10 ^3/uL (0-0.8) Basophils # (Auto) 0 10 ^3/uL (0-0.2) Nucleated Red Blood Cells 0.0 % Sodium Level 144 mmol/L (136-145) Potassium Level 3.7 mmol/L (3.5-5.1) Chloride Level 105 mmol/L (98-107) Carbon Dioxide Level 28 mmol/L (20-31) Anion Gap 11 (5-15) Blood Urea Nitrogen 7 mg/dL (9-23) Creatinine 0.71 mg/dL (0.550-1.02) Glomerular Filtration Rate Calc 88 mL/min (>90) BUN/Creatinine Ratio 9.9 (10.0-20.0) Serum Glucose 83 mg/dL (74-106) Calcium Level 9.6 mg/dL (8.7-10.4) Total Bilirubin 0.5 mg/dL (0.2-1.0) Aspartate Amino Transferase (AST) 19 U/L (13-40) Alanine Aminotransferase (ALT) 16 U/L (7-40) Alkaline Phosphatase 43 U/L (46-116) Total Protein 6.5 g/dL (5.7-8.2) Albumin 3.9 g/dL (3.2-4.8) Hemoglobin A1c 5.3 % A1C (<5.7) Lactic Acid Level 1.0 mmol/L (0.4-2.0) Lipase 34 U/L (12-53) Urine Color Light-yellow (Yellow) Urine Clarity Turbid (Clear) Urine pH 7.0 (5.0-9.0) Urine Specific [place] 1.009 (1.001-1.035) Urine Protein Trace (Negative) Urine Ketones Negative (Negative) Urine Blood 2+ /uL (Negative) Urine Nitrite Negative (Negative) Urine Bilirubin Negative (Negative) Urine Urobilinogen Normal mg/dL (Negative) Urine Leukocyte Esterase 2+ /uL (Negative) Urine RBC 14 /hpf (0 - 4) Urine Microscopic WBC 21 /HPF (0-5) Urine Squamous Epithelial Cells Few /hpf (<5) Urine Bacteria None seen /hpf (None Seen) Urine Glucose Normal mg/dL (Normal) Other Laboratory Tests 02/14/25 06:01 Brief Hx & Hospital Course: Mrac Issa is a 75-year-old female with past medical history of arthritis, lung cancer, diabetes, hyperlipidemia, hypertension, thyroid disease, peripheral neuropathy, chronic back pain, gastritis and PUD who presents to the ED with dysuria, retention, and burning that started yesterday. Patient also reports that the last bowel movement she had was 2 weeks ago. She also reports that she is currently on [place] for her chronic back pain. Patient also endorses that she was supposed to receive a front wheel walker but never got 1. She states that she does ambulate. She also reports that she drinks wine once every 2 months. She also endorses that she lives alone. Patient reports that she was discharged from [facility] on 01/15/25 had an endoscopy on 01/14/25 and was diagnosed with H pylori, was also to be followed up with Dr. Funes. Patient denies any recent trauma or injury, recent sick contacts, recent travels, recent ingestion of spoiled food, chest pain, shortness of breath, fever, chills, lightheadedness, weakness, or dizziness. Dysuria likely due to UTI Acute urinary retention Constipation likely due to retained colorectal stool and rectal fecal impaction Alcohol use History of chronic back pain on [place] History of arthritis History of lung cancer DM type II hyperlipidemia hypertension History of thyroid disease History of PUD History of peripheral neuropathy History of gastritis constipation recent infection of H pyloric GERD 02/14/2025: pending urine Cx. continue with IV aBx 02/15/2025: pt complained of constipation and the urge to defecate but unable to do so consult GI also, pt has hx of H pylori 02/16/2025: pending evaluation by GI 02/17/2025: discharged to home Condition at Discharge: Fair Final Diagnosis/Problems List see above Discharge Disposition: Home Discharge Instruct/Medications Diet: Cardiac 2g Na,low cholest Activity: No Restrictions, As Tolerated Scheduled Amoxicillin Trihydrate (Amoxicillin), 2 TAB PO BID Atorvastatin Calcium (Atorvastatin Calcium), 1 TAB PO DAILY, (Reported) Calcium Carbonate (Calcium), 600 MG PO DAILY, (Reported) Cephalexin (Keflex Capsule), 1 CAP PO QID Clarithromycin (Clarithromycin), 1 TAB PO BID Clarithromycin (Clarithromycin), 1 TAB PO BID Enalapril Maleate (Enalapril Maleate), 1 TAB PO DAILY, (Reported) Gabapentin (Gabapentin), 1 CAP PO BID, (Reported) Hydrochlorothiazide W/Triamter (Triamterene/Hydrochloroth), 1 CAP PO DAILY, (Reported) Hydrocodone-Acetaminophen (Hydrocodone Bitartrate/AC 10-325 mg), 1 TAB PO TID, (Reported) Levofloxacin Hemihydrate (Levofloxacin), 1 TAB PO DAILY Levothyroxine Sodium (Levothyroxine Sodium), 1 TAB PO DAILY, (Reported) Metformin Hydrochloride (Metformin Hcl), 1 TAB PO DAILY, (Reported) Metronidazole (Metronidazole), 500 MG PO BID Pantoprazole Sodium Sesquihydr (Pantoprazole Sodium), 40 MG PO BID Pantoprazole Sodium Sesquihydr (Protonix), 40 MG PO BID Sucralfate (Carafate Susp), 1 GM PO QID@0600,1130,1700,2200 Verapamil HCl (Verapamil Hydrochloride E), 1 TAB PO DAILY, (Reported) Discharge Statement: "Patient was advised to return to the ER or call 911 if any headaches, dizziness, shortness of breath, chest pain, abdominal pain, bleeding, fevers, or worsening of medical condition. Patient was counseled about treatment plan, medications, possible side effects, patientverbalized understanding. All questions were answered to the best of my ability. This discharge took greater then 30 minutes in planning, reviewing documentation, counseling the patient, and discussing with other team members." ASSESSMENT ASSESSMENT Assessment Date of Service: Feb 17, 2025 Billing Provider: SANGITA NIETO DO Common Visit Codes: [id number] DISCH DAY >30min SANGITA NIETO DO Feb 17, 2025 11:34
[2025-02-17 12:06] VITALS: BP 105/56; PULSE 75; TEMP 36.1
[2025-02-17 12:52] VITALS: BP 107/70; PULSE 69; RESP 14; TEMP 97.6; O2SAT 96
== END 2025-02-17 16:30 | disposition home or self-care (01) | DRG 690 ==
LOC: ER 01:17 → OVERFLOW 06:58 → EAST 14:00
PROVIDERS: ADMIT Internal Medicine; ATTEND Internal Medicine
DX: N30.01 Acute cystitis with hematuria (principal); K56.41 Fecal impaction; I10 Essential (primary) hypertension; E11.42 Type 2 diabetes mellitus with diabetic polyneuropathy; D64.9 Anemia, unspecified; K21.9 Gastro-esophageal reflux disease without esophagitis; G89.29 Other chronic pain; E78.5 Hyperlipidemia, unspecified; F10.90 Alcohol use, unspecified, uncomplicated; Z88.0 Allergy status to penicillin; Z86.19 Personal history of other infectious and parasitic diseases; Z85.118 Personal history of other malignant neoplasm of bronchus and lung; Z87.11 Personal history of peptic ulcer disease; Z82.49 Family history of ischemic heart disease and other diseases of the circulatory system; Z83.3 Family history of diabetes mellitus; Z82.3 Family history of stroke; Z79.891 Long term (current) use of opiate analgesic; Z60.2 Problems related to living alone; Y90.9 Presence of alcohol in blood, level not specified
CPT/HCPCS: 36415; 74177; 80053; 81001; 82962; 83036; 83605; 83690; 85025; 87040; 87086; 96374; 96375; G0378; J2405

== ENCOUNTER 2025-03-28 08:39 | Emergency (ER) | payer OTHER ==
[~2025-03-28] VITALS: Ht 175.3 cm; Wt 67.6 kg
[~2025-03-28 08:39] MED LIST changes: +ENAL5TAB22 PO; +LEVO500T91 PO; +MET500T PO
[2025-03-28 08:43] VITALS: BP 130/72; PULSE 87; RESP 18; TEMP 98.7; O2SAT 97
--- NOTE | 2025-03-28 09:48 | DVH ---
EXAM: CT CT AB PEL WO CON-NO ORAL OR IV HISTORY: DIFFICULTY BOWL MOVEMENT XONE WEEK Comparison Study: CT CT AB PEL WITH IV CON ONLY on DOS: 02/13/25 Exam Date: 03/28/2025 09:18 AM Radiation Dose Information: CT Dose: CTDI volume is 7.8 mGy. Dose-length product is 380 mGy*cm Technique: Multidetector CT of the abdomen and pelvis was performed. Imaging was performed without IV contrast. Axial, coronal and sagittal multiplanar reformats were obtained from the axial data set by the technologist. Findings: Lack of intravenous contrast compromises evaluation of perfusion and for isodense lesions. Lower chest: Right basilar atelectasis/scarring. Liver: Unremarkable Biliary system: Unremarkable Spleen: Calcified granuloma. Pancreas: Unremarkable. Adrenals: Unremarkable. Kidneys and ureters: No hydronephrosis Bowel: No obstruction. Appendix not visualized, but no inflammatory changes present in the right lower quadrant. Few Cer[place] throughout the colon. Bladder: Unremarkable Reproductive organs: No abnormal mass. Lymph nodes: Unremarkable. Peritoneum: Unremarkable Vessels: Patency not evaluated on this noncontrast study. Bones and soft tissue: No aggressive osseous lesion IMPRESSION: No acute finding. Diffuse lower in the colon suggestive of constipation. No bowel obstruction.
[2025-03-28] MEDS: LACTULOSE 20Gm/30ML SOLN PO ONE (09:52)
--- NOTE | 2025-03-28 09:57 | ED.PDOC ---
GI ASSESSMENT HPI Comments A 75 YEAR OLD FEMALE PRESENTS TO THE ED WITH COMPLAINT OF CONSTIPATION. PATIENT STATES HE HAS BEEN EXPERIENCING CONSTIPATION FOR THE PAST 8 DAYS. PATIENT REPORTS SHE HAS USED AN [id number] ENEMA WITH NO IMPROVEMENT IN HIS SYMPTOMS. THE PATIENT REPORTS SHE HAS ALSO HAD ABDOMINAL PAIN A RESULT OF HER CONSTIPATION. PATIENT DENIES FEVER, CHILLS, SHORTNESS OF BREATH, CHEST PAIN, NAUSEA, VOMITING, HEADACHE, OR OTHER COMPLAINTS. NO OTHER SYMPTOMS OR MODIFYING FACTORS AT THIS TIME. PATIENT IS ALERT, ORIENTED X 4, AND HAS STEADY GAIT. Chief Complaint: Constipation Time Seen by MD: 09:00 Primary Care Provider: NNEKA Holder Notes: Nurses Notes, Medications, Allergies Allergies: Uncoded Allergies: PENICILLIN (Allergy, Unknown, 11/23/17) Home Meds Active Scripts Metronidazole (Metronidazole) 500 Mg Tab, 500 MG PO BID for 14 Days, #28 TAB Prov:EMILIASANGITA Bozena DO 02/17/25 Clarithromycin (Clarithromycin) 500 Mg Tab, 1 TAB PO BID for 14 Days, #28 TAB Prov:SANGITA NIETO DO 02/17/25 Levofloxacin Hemihydrate (LEVOFLOXACIN) 500 Mg Tab, 1 TAB PO DAILY, #7 TAB Prov:WISAM NIETOMY Bozena DO 02/16/25 Pantoprazole Sodium Sesquihydr (Protonix) 40 Mg Tab, 40 MG PO BID for 30 Days, #60 TAB 2 Refills Prov:NALDO CARLOS RESIDENT 02/05/25 Clarithromycin (Clarithromycin) 500 Mg Tab, 1 TAB PO BID for 14 Days, #28 TAB Prov:CARLOS,NALDO RESIDENT 02/05/25 Amoxicillin Trihydrate (Amoxicillin) 500 Mg Tab, 2 TAB PO BID for 14 Days, #56 TAB Prov:CARLOS,NALDO RESIDENT 02/05/25 Cephalexin (KEFLEX CAPSULE) 250 Mg Cp, 1 CAP PO QID for 3 Days, #28 CAP Prov:SHERRY RIZVI RESIDENT 01/15/25 Pantoprazole Sodium Sesquihydr (Pantoprazole Sodium) 40 Mg Tab, 40 MG PO BID for 30 Days, #60 TAB Prov:SHERRY RIZVI RESIDENT 01/15/25 Sucralfate (CARAFATE SUSP) 1 Gm/10 Ml Ss, 1 GM PO QID@0600,1130,1700,2200 for 30 Days, #30 ML Prov:SHERRY RIZVI RESIDENT 01/15/25 Reported Medications Enalapril Maleate (Enalapril Maleate) 5 Mg Tab, 1 TAB PO DAILY 02/13/25 Calcium Carbonate (Calcium) 600 Mg Tab, 600 MG PO DAILY, TAB 01/13/25 Hydrochlorothiazide W/Triamter (Triamterene/Hydrochloroth) 1 Cap Cap, 1 CAP PO DAILY, CAP 01/13/25 Hydrocodone-Acetaminophen (Hydrocodone Bitartrate/AC 10-325 mg) 1 Tab Tab, 1 TAB PO TID, TAB 01/13/25 Metformin Hydrochloride (Metformin Hcl) 500 Mg Tab, 1 TAB PO DAILY, #60 TAB 3 Refills 01/13/25 Atorvastatin Calcium (ATORVASTATIN CALCIUM) 20 Mg Tab, 1 TAB PO DAILY 01/12/25 Gabapentin (Gabapentin) 100 Mg Cap, 1 CAP PO BID 01/12/25 Levothyroxine Sodium (Levothyroxine Sodium) 50 Mcg Tab, 1 TAB PO DAILY 01/12/25 Verapamil HCl (Verapamil Hydrochloride E) 240 Mg Tab, 1 TAB PO DAILY 01/12/25 Information Source: Patient Mode of Arrival: Ambulatory Timing: Days Duration: Since onset, Days Prehospital treatment: None Quality: Aching, Cramping Vomitus: None Stool: Minimal Severity: Moderate Recent: None Pain Location: RLQ, LLQ, Suprapubic Modifying Factors: Nothing Associated sign and symptoms: Constipation Past Medical History PAST MEDICAL HISTORY: Arthritis, Cancer, DM, High Lipids, HTN, PUD, Thyroid Surgical History: BTL FUNERAL DIRECTOR History: No Pertinent FUNERAL DIRECTOR History Family History Family History: Reviewed,noncontributory to illness, Family hx of Cancer Social History Smoker: Non-Smoker, Quit Greater Than 1 Year Alcohol: Denies ETOH Use Drugs: Denies Drug Use Lives In: Home Constitutional: denies: chills, diaphoresis, fatigue, fever, malaise, sweats, weakness, others EENTM: denies: blurred vision, double vision, ear bleeding, ear discharge, ear drainage, ear pain, ear ringing, eye pain, eye redness, hearing loss, mouth pain, mouth swelling, nasal discharge, nose bleeding, nose congestion, nose pain, photophobia, tearing, throat pain, throat swelling, voice changes, others Respiratory: denies: cough, hemoptysis, orthopnea, SOB at rest, shortness of breath, SOB with excertion, stridor, wheezing, others Cardiovascular: denies: chest pain, dizzy spells, diaphoresis, Dyspnea on exertion, edema, irregular heart beat, left arm pain, lightheadedness, palpitations, PND, syncope, others Gastrointestinal: reports: abdominal pain (PRESSURE ), constipated; denies: abdomen distended, blood streaked bowels, diarrhea, dysphagia, difficulty swallowing, hematemesis, melena, nausea, poor appetite, poor fluid intake, rectal bleeding, rectal pain, vomiting, others Genitourinary: denies: abnormal vagina bleeding, burning, dyspareunia, dysuria, flank pain, frequency, hematuria, incontinence, pain, , vagina discharge, urgency, others Neurological: denies: dizziness, fainting, headache, left sided numbness, left sided weakness, numbness, paresthesia, pre-existing deficit, right sided numbness, right sided weakness, seizure, speech problems, tingling, tremors, weakness, others Musculoskeletal: denies: back pain, gout, joint pain, joint swelling, muscle pain, muscle stiffness, neck pain, others Integumetry: denies: bruises, change in color, change in hair/nails, dryness, laceration, lesions, lumps, rash, wounds, others Allergic/Immunocompromised: denies: Difficulty Healing, Frequent Infections, Hives, Itching, others Hematologic/Lymphatic: denies: anemia, blood clots, easy bleeding, easy bruising, swollen glands, others Endocrine: denies: excessive hunger, excessive sweating, excessive thirst, excessive urination, flushing, intolerance to cold, intolerance to heat, unexplained weight gain, unexplained weight loss, others Psychiatric: denies: anxiety, bipolar disorder, depression, hopeless, panic disorder, schizophrenia, sleepless, suicidal, others All Other Systems: Reviewed and Negative Physical Exam General Appearance: No Apparent Distress, Normal HEENT: Normal ENT Inspection, PERRL/EOMI, Pharynx Normal, TMs Normal Neck: Full Range of Motion, Non-Tender, Normal, Normal Inspection Respiratory: Chest Non-Tender, Lungs Clear, No Accessory Muscle Use, No Respiratory Distress, Normal Breath Sounds Cardiovascular: No Edema, No JVD, No Murmur, No Gallop, Normal Peripheral Pulses, Regular Rate/Rhythm Breast Exam: Deferred Gastrointestinal: No Organomegaly, No Pulsatile Mass, Normal Bowel Sounds, Soft, Suprapubic, Tenderness (AND PRESSURE LOW ABD, NO GUARDING AND REBOUND TENDERNESS. ) Genitalia: Deferred Pelvic: Deferred Rectal: Heme negative stool, Normal rectal tone (NO FECAL IMPACTION RECTAL REGION WITH RECTAL EXAM. ) Extremities: No calf tenderness, Normal capillary refill, Normal inspection, Normal range of motion, Non-tender, No pedal edema Musculoskeletal : Apperance: Normal Neurologic: Alert, gang supervisor pipe lines II-XII nml as Tested, No Motor Deficits, Normal Affect, Normal Mood, No Sensory Deficits Cerebellar Function: Normal Reflexes: Normal Skin: Dry, Normal Color, Warm Peripheral Pulses: 2+ carotid (R), 2+ carotid (L) Lymphatic: No Adenopathy Was a procedure done? Was a procedure done?: No GI differential Dx Differential Diagnosis: Bowel Obstruction, Constipation, Impaction X-Ray, Labs, Meds, VS Vital Signs Date Time Temp Pulse Resp B/P (MAP) Pulse Ox O2 Delivery O2 Flow Rate FiO2 03/28/25 08:43 98.7 87 18 130/72 97 98.7 Current Medications Medications (Trade) Dose Ordered Sig/Lyric Route Start Time Stop Time Status Last Admin Lactulose 60 ml ONCE ONCE PO 03/28/25 09:45 03/28/25 09:46 DC 03/28/25 09:52 EXAM: CT CT AB PEL WO CON-NO ORAL OR IV HISTORY: DIFFICULTY BOWL MOVEMENT XONE WEEK Comparison Study: CT CT AB PEL WITH IV CON ONLY on DOS: 02/13/25 Exam Date: 03/28/2025 09:18 AM Radiation Dose Information: CT Dose: CTDI volume is 7.8 mGy. Dose-length product is 380 mGy*cm Technique: Multidetector CT of the abdomen and pelvis was performed. Imaging was performed without IV contrast. Axial, coronal and sagittal multiplanar reformats were obtained from the axial data set by the technologist. Findings: Lack of intravenous contrast compromises evaluation of perfusion and for isodense lesions. Lower chest: Right basilar atelectasis/scarring. Liver: Unremarkable Biliary system: Unremarkable Spleen: Calcified granuloma. Pancreas: Unremarkable. Adrenals: Unremarkable. Kidneys and ureters: No hydronephrosis Bowel: No obstruction. Appendix not visualized, but no inflammatory changes present in the right lower quadrant. Few Cer[place] throughout the colon. Bladder: Unremarkable Reproductive organs: No abnormal mass. Lymph nodes: Unremarkable. Peritoneum: Unremarkable Vessels: Patency not evaluated on this noncontrast study. Bones and soft tissue: No aggressive osseous lesion IMPRESSION: No acute finding. Diffuse lower in the colon suggestive of constipation. No bowel obstruction. ATED BY: RENAE FLOR MD DICTATED DATE/TIME: 03/28/25945 SIGNED BY: RENAE FLOR MD SIGNED DATE/TIME: 03/28/25945 CC: X-Ray, Labs, Meds, VS Comment EXTERNAL MEDICAL RECORDS REVIEWED: [NONE] INDEPENDENT HISTORIANS: [NONE] SOCIAL DETERMINANTS OF HEALTH: [NONE] LABS ORDERED: NONE REVIEWED AND INTERPRETED RESULTS: NONE IMAGING ORDERED: CT ABD/PEL TREATMENTS ORDERED: LACTULOSE 60 ML P.O., MAGNESIUM CITRATE 150 ML P.O. PROCEDURES PERFORMED: NONE CRITICAL CARE TIME: NONE I HAVE DISCUSSED THE PATIENT WITH THE ATTENDING PHYSICIAN DR. DAVISON AND HE AGREES WITH THE PATIENT'S PLAN OF CARE AND DISPOSITION. BASED ON HISTORY OF PRESENT ILLNESS, AND PHYSICAL EXAM, PATIENT WILL BE DISCHARGED HOME. DISCUSSED PLAN FOR DISCHARGE HOME WITH RX [LACTULOSE]. MEDICATION WARNINGS GIVEN. SHARED DECISION MAKING: PATIENT INSTRUCTED TO FOLLOW UP WITH PRIMARY CARE PROVIDER IN 1-2 DAYS FOR RE-EVALUATION OF SYMPTOMS. PATIENT VERBALIZES UNDERSTANDING TO RETURN TO ED FOR NEW OR WORSENING SYMPTOMS OR IF FOLLOW UP WITH PCP CANNOT BE OBTAINED. PATIENT FEELS COMFORTABLE GOING HOME AT THIS TIME. ALL QUESTIONS ADDRESSED AT TIME OF DISCHARGE. Images Reviewed?: Images reviewed and evaluated by me Time of 1ST Reevaluation: 10:30 Reevaluation 1ST: Improved Patient Education/Counseling: Diagnosis, Treatment, Need For Follow Up Family Education/Counseling: Diagnosis, Treatment, Need For Follow Up Medical Screening: No EMC Exist At This Time SEPSIS Sepsis Screen Date sepsis recognized/suspect: Mar 28, 2025 Time Sepsis recognized/suspect: 0846 Recent Procedure: No On Antibiotic Therapy: No Respiratory Rate >20: No Heart Rate >90: No Temp<36 C (96.8 F) or >38.3 C: No SBP <90 or MAP <65 mmHG: No New Acute Mental Status Change: No Is the patient on CPAP, BIPAP,: No Physician Orders Ct Ab Pel Wo Con-No Oral Or Iv (03/28/25 09:12) Magnesium Citrate Solution (Citrate Of M (03/28/25 10:00) Vital Signs Date Time Temp Pulse Resp B/P (MAP) Pulse Ox O2 Delivery O2 Flow Rate FiO2 03/28/25 08:43 98.7 87 18 130/72 97 98.7 Medications Medications Dose Ordered Sig/Lyric Route Start Time Stop Time Status Last Admin Dose Admin Lactulose 60 ml ONCE ONCE PO 03/28/25 09:45 03/28/25 09:46 DC 03/28/25 09:52 Departure 1 Departure Time of Disposition: 10:30 Impression: Primary Impression: Constipation Qualified Codes: K59.00 - Constipation, unspecified Disposition: HOME / SELF CARE / HOMELESS Condition: Stable Additional Instructions: FOLLOW-UP WITH PCP IN 1 TO 2 DAYS. TAKE MEDICATIONS PRESCRIBED. RETURN TO ED FOR ANY NEW OR WORSENING SYMPTOMS. e-Prescriptions Lactulose (Lactulose) 10 Gm/15 Ml Rubi 30 ML PO BID, #300 ML Prov: DENISSE GARCÍA 03/28/25 Discharged With: Self, Relative Critical Care Note Critical Care Time?: No Stability Stability form required: No I personally scribed for DENISSE GARCÍA ([email or web address]) on 03/28/25 at 09:57. Electronically submitted by Oswaldo Franco ([email or web address]). DENISSE GARCÍA Mar 28, 2025 09:57
[2025-03-28] MEDS: MAGNESIUM CITRATE SOLUTION 300 ML BTL PO ONE (10:00)
[2025-03-28] MEDS ORDERED: LACT10SO3 PO (10:03)
== END 2025-03-28 10:30 | disposition home or self-care (01) ==
LOC: ER 08:39
DX: K59.00 Constipation, unspecified (principal); I10 Essential (primary) hypertension; E11.9 Type 2 diabetes mellitus without complications; M19.90 Unspecified osteoarthritis, unspecified site; E03.9 Hypothyroidism, unspecified; Z79.84 Long term (current) use of oral hypoglycemic drugs; Z79.899 Other long term (current) drug therapy; Z85.850 Personal history of malignant neoplasm of thyroid; Z87.11 Personal history of peptic ulcer disease; Z98.51 Tubal ligation status; Z88.0 Allergy status to penicillin
CPT/HCPCS: 74176